=== PATIENT | female | born 1955 | race Caucasian/White ===

== ENCOUNTER → 2016-06-14 | Outpatient (CLI) | payer BC, MEDICAID ==
[2015-12-06 18:49] VITALS: BP 141/65
[~2016-06-14] MED LIST: ACET500T33 PO; ALBU2.5V14 NEB; ATOR10TA60 PO; ATOR20TA PO; BUPIVACAINE MPF 0.5% 10 ML VIAL for KCIC. IJ ONE; CALC-77 PO; CARV25TA2 PO; CHOL200027 PO; CLON0.2T PO; CLON1PAT11 TD; CRAN500T2 PO; EPIN0.1S IJ; FLUT16SP NS; FLUT1DIS IH; FLUT1DIS3 IH; FURO-69 PO; HYDR-2762 PO; IOHEXOL 300 MG/ML 50 ML VIAL. INT ART ONE; LIDOCAINE 1% Multi-Dose 20 ML VIAL. ID ONE; LORA10TA68 PO; LOSA1TAB17 PO; LOSA1TAB18 PO; MONT10TA6 PO; NYST15CR TP; POTA10CA PO; POTA500T5 PO; PROAIR RESPICL90 MCG IH; PROM25TA10 PO; SUCR1TAB PO; TRAM100T PO; methylPREDNISolone ACETATE 40 MG/ML VIAL. INT ART ONE
--- NOTE | 2016-06-14 16:44 | KCIC ---
PROCEDURE THERAPEUTIC RIGHT HIP JOINT INJECTION USING FLUOROSCOPY INDICATIONS: Chronic right hip pain. PROCEDURE: The procedure and possible complications including bleeding and infection and allergic reaction were explained. The patient provided both verbal and written consent. A timeout was performed including confirming the name of the patient and the date of and the type of procedure and the side of the procedure. Allergic reactions were reviewed. The right hip was marked. The right hip was prepped with Betadine and draped in the usual sterile fashion. A total of [3] cc of 1% lidocaine was utilized for local anesthesia. Using sterile technique and fluoroscopic guidance, a 22 Gauge spinal needle was directed into the right hip joint from an anterior approach. A solution containing 4 cc of 1 percent lidocaine and 4 cc of 0.5 percent Marcaine and 4 cc of Omnipaque 300 and 80 milligrams of Depo-Medrol was injected intra-articularly into the right hip joint under fluoroscopic observation. Fluoroscopic spot view was obtained confirming intra-articular position of the contrast. The needle was removed and hemostasis was deemed adequate. The patient tolerated the procedure well without complication. Followup will be with the patient's physician. Total fluoroscopic time: 12 seconds. Total fluoroscopic spot view: 1. IMPRESSION: Fluoroscopic guided right hip therapeutic injection was performed as discussed above without complication. Electronically signed by: Bogdan Staton MD (Jun 14, 2016 16:43:07)
== END | disposition home or self-care (01) ==
LOC: KCIC 15:29
PROVIDERS: ATTEND Orthopaedic Surgery Sports Medicine
DX: M25.551 Pain in right hip (principal); G89.29 Other chronic pain
CPT/HCPCS: 20610; 77002; J1030; Q9967

== ENCOUNTER → 2016-08-22 | Outpatient (CLI) | payer BC, MEDICAID ==
[2015-12-06 18:49] VITALS: BP 141/65
[~2016-08-22] MED LIST changes: -BUPIVACAINE MPF 0.5% 10 ML VIAL for KCIC. IJ ONE; -IOHEXOL 300 MG/ML 50 ML VIAL. INT ART ONE; -LIDOCAINE 1% Multi-Dose 20 ML VIAL. ID ONE; -POTA10CA PO; +POTASSIUM CHLO10 MEQ PO; -methylPREDNISolone ACETATE 40 MG/ML VIAL. INT ART ONE
--- NOTE | 2016-08-22 14:48 | KCIC ---
EXAM: Bilateral screening mammogram. HISTORY: 61-year-old female presents for screening mammography. TECHNIQUE: Full-field digital craniocaudal and mediolateral oblique views of both breasts are obtained for evaluation. Computer aided detection with Storactive[employer] software version 9.3 was applied. COMPARISON: 07/29/2015 and 07/21/2014 BREAST PARENCHYMAL DENSITY: Level B - Scattered fibroglandular densities. FINDINGS: There is no new suspicious mass, microcalcification or region of architectural distortion. IMPRESSION: BI-RADS Category 2: Benign finding(s). RECOMMENDATION: Annual mammography is recommended. If your mammogram demonstrates that you have dense breast tissue, which could hide abnormalities, and if you have other risk factors for breast cancer that have been identified, you might benefit from supplemental screening tests that may be suggested by your ordering physician. Dense breast tissue, in and of itself, is a relatively common condition. This information is not provided to cause undue concern, but rather to raise your awareness and to promote discussion with your physician regarding the presence of other risk factors, in addition to dense breast tissue. A report of your mammography results will be sent to you and your physician. You should contact your physician if you have any questions or concerns regarding this report. Mammography is a sensitive method for finding small breast cancers, but it does not detect them all and is not a substitute for careful clinical examination. A negative mammogram does not negate a clinically suspicious finding and should not result in delay in biopsying a clinically suspicious abnormality. PQRS compliance statement - Patient information was entered into a reminder system with a target due date for the next mammogram. "Our facility is accredited by the [employer] Mammography Program." Electronically signed by: Teresa Cochran MD (08/22/2016 2:44 PM) [facility]
== END | disposition home or self-care (01) ==
LOC: KCIC MAMMO 13:59
PROVIDERS: ATTEND Family Medicine
DX: Z12.31 Encounter for screening mammogram for malignant neoplasm of breast (principal)
CPT/HCPCS: G0202; 77067

== ENCOUNTER → 2016-09-17 | Outpatient (CLI) | payer BC, MEDICAID ==
[2015-12-06 18:49] VITALS: BP 141/65
[~2016-09-17] MED LIST changes: +BUPIVACAINE MPF 0.5% 10 ML VIAL for KCIC. IJ ONE; +IOHEXOL 300 MG/ML 50 ML VIAL. INT ART ONE; +LIDOCAINE 1% Multi-Dose 20 ML VIAL. ID ONE; +methylPREDNISolone ACETATE 40 MG/ML VIAL. INT ART ONE
--- NOTE | 2016-09-17 13:35 | KCIC ---
Therapeutic right hip injection using fluoroscopic guidance dated 09/17/2016: Indication: Arthritis. hip pain.. Technique: The procedure was explained to the patient as were potential risks. All questions were answered. Informed written consent was obtained. The right hip was prepped and draped in the usual sterile manner. Following administration of local anesthetic, a 22-gauge spinal needle was advanced into the hip joint without difficulty, with care taken to avoid the vascular structures. Stylet was removed and following negative aspiration, a mixture of 4 cc Omnipaque-300, 2 cc (80 mg) Depo-Medrol, 4 cc lidocaine and 4 cc 0.5% bupivacaine were injected without difficulty. Fluoroscopy demonstrates uniform and satisfactory distribution of the injection through the hip. The needle was removed. There was good hemostasis at the injection site. The patient left in stable condition without immediate complication. The patient was given postprocedural instructions, instructed to contact us or the emergency room if there are any complications. 0:39 minutes fluoroscopic time used. One image. FINDINGS: Single fluoroscopic image shows needle tip at the lateral head/neck junction. Contrast material extends into the joint space. Impression: Successful right hip steroid injection. Electronically signed by: Chad Barkre MD (09/17/2016 1:32 PM) [facility]
== END | disposition home or self-care (01) ==
LOC: KCIC 11:57
PROVIDERS: ATTEND Orthopaedic Surgery Sports Medicine
DX: M16.11 Unilateral primary osteoarthritis, right hip (principal); G89.29 Other chronic pain
CPT/HCPCS: 20610; 77002; J1030; Q9967

== ENCOUNTER 2016-10-14 21:16 | Emergency (ER) | payer BC, MEDICAID ==
[~2016-10-14] VITALS: Ht 160 cm; Wt 97.5 kg
[~2016-10-14 21:16] MED LIST changes: -BUPIVACAINE MPF 0.5% 10 ML VIAL for KCIC. IJ ONE; -IOHEXOL 300 MG/ML 50 ML VIAL. INT ART ONE; -LIDOCAINE 1% Multi-Dose 20 ML VIAL. ID ONE; -methylPREDNISolone ACETATE 40 MG/ML VIAL. INT ART ONE
[2016-10-14 22:09] VITALS: BP 126/60
--- NOTE | 2016-10-14 22:17 | PHYS DOC ---
Past Medical History Past Medical History: Arthritis, Asthma, Diabetes-Type I, High Cholesterol, Hypertension, IBS Additional Past Medical Histor: CHRONIC BACK PAIN, CKD, SHINGLES, MRSA, BRADYCARDIA Past Surgical History: Angioplasty, Knee Replacement Additional Past Surgical Histo: BILAT KNEE REPL., RT SHOULDER, SINUS, CARPAL TUNNEL, CATARACT BILAT, Alcohol Use: None Drug Use: None Adult General Chief Complaint Chief Complaint: LACERATION/AVULSION HPI HPI Patient is a 61 year old female presents to the emergency department stating that she was using a basket that has 4 will start take her laundry across the street. She states that the car got stuck and fell over and hit her leg. She has a V-shaped laceration that is 4 cm with one V3 centimeters in the other feet. Bleeding is currently controlled at this time. Peripheral pulses are 2+ cap refill brisk less than 2 seconds. Patient states her tetanus immunization is up-to-date. Review of Systems Review of Systems Constitutional: Denies fever or chills [] Eyes: Denies change in visual acuity, redness, or eye pain [] HENT: Denies nasal congestion or sore throat [] Respiratory: Denies cough or shortness of breath [] Cardiovascular: No additional information not addressed in HPI [] GI: Denies abdominal pain, nausea, vomiting, bloody stools or diarrhea [] : Denies dysuria or hematuria [] Musculoskeletal: Denies back pain or joint pain [] Integument: Denies rash or skin lesions. Laceration right lower leg Neurologic: Denies headache, focal weakness or sensory changes [] Endocrine: Denies polyuria or polydipsia [] Current Medications Current Medications Current Medications Medications (Trade) Dose Ordered Sig/Khushboo Start Time Stop Time Status Last Admin Dose Admin Lidocaine/Sodium Bicarbonate (Buffered Lidocaine 1%) 20 ml 1X ONCE 10/14/16 22:30 10/14/16 22:31 DC 10/14/16 22:50 20 ML Allergies Allergies Allergies Coded Allergies Type Severity Reaction Last Updated Verified Sulfa (Sulfonamide Antibiotics) Allergy Intermediate SYNCOPAL EPISODE Yes bacitracin Allergy Intermediate Rash 04/16/13 Yes meloxicam Allergy Intermediate Swelling in Feet 08/05/15 Yes tizanidine Allergy Intermediate Swelling 04/16/13 Yes venom-honey bee Allergy Intermediate 08/05/15 Yes venom-wasp Allergy Intermediate 08/05/15 Yes Physical Exam Physical Exam Constitutional: Well developed, well nourished, no acute distress, non-toxic appearance. [] HENT: Normocephalic, atraumatic, bilateral external ears normal, oropharynx moist, no oral exudates, nose normal. [] Eyes: PERRLA, EOMI, conjunctiva normal, no discharge. [] Neck: Normal range of motion, no tenderness, supple, no stridor. [] Cardiovascular:Heart rate regular rhythm Lungs & Thorax: No respiratory distress noted Skin: Warm, dry, no erythema, no rash. Patient with a V-shaped laceration to the right lateral leg The calf. Patient's length is 3 cm on one be 4 cm on the second the. Bleeding is currently controlled. Back: No tenderness Extremities: No tenderness, no cyanosis, no clubbing, ROM intact, no edema. Peripheral pulses 2+ cap refill brisk less than 2 seconds. Neurologic: Alert and oriented X 3, normal motor function, normal sensory function, no focal deficits noted. [] Psychologic: Affect normal, judgement normal, mood normal. [] Current Patient Data Vital Signs Vital Signs Date Time Temp Pulse Resp B/P (MAP) Pulse Ox O2 Delivery O2 Flow Rate FiO2 10/14/16 22:09 98.6 67 16 97 Room Air 98.6 EKG EKG [] Radiology/Procedures Radiology/Procedures [] Course & Med Decision Making Course & Med Decision Making Pertinent Labs and Imaging studies reviewed. (See chart for details) Patient was provided with discharge instructions, treatment regimens and follow- up recommendations. Recommended cleaning the site twice daily with soap and water and applying antibiotic ointment. Patient was provided with signs and symptoms of infection: Redness, warmth, tenderness or any yellow/greenish transient become from the sites is to follow-up primary care physician immediately. Patient was also instructed to have the sutures out in 7-10 days. Patient agrees with discharge instructions, treatment regimens and follow-up recommendations. [] Dragon Disclaimer Dragon Disclaimer This electronic medical record was generated, in whole or in part, using a voice recognition dictation system. Departure Departure Impression: Primary Impression: Laceration Disposition: 01 HOME, SELF-CARE Condition: STABLE Referrals: PREM WISDOM MD (PCP) Patient Instructions: Laceration Care, Adult, [id number] Additional Instructions: Keep the area clean and dry. Clean the site twice daily with soap and water and apply antibiotic ointment to the area. Watch for signs and symptoms of infection: Redness, warmth, tenderness or any yellow/greenish transient become from the site. If this should occur you may do follow-up to primary care physician immediately. Otherwise follow-up to primary care physician next 7-10 days for suture removal. Return back to emergency prior signs symptoms of become worse. Laceration/Wound Repair Laceration/Wound Repair : Wound Location: lower extremity Wound's Depth, Shape: superficial Wound Length (cm): 5 Wound Explored: clean Irrigated w/ Saline (ccs): 200 Betadine Prep?: Yes Anesthesia: 1% Lidocaine Volume Anesthetic (ccs): 12 Wound Debrided: minimal Wound Repaired With: sutures Suture Size/Type: 3:0, nylon Number of Sutures: 8 Progress 1% lidocaine buffered with approximately 12 mL injected into the area. Site was irrigated with 200 mL of normal saline. Site was cleaned with Betadine. 3-0 nylon was used to suture the area. Patient tolerated the procedure well. There is an area at the bottom of the V that was not suturable that was left slightly open. She had a total of 8 interrupted sutures placed. XOCHILT LOPEZ APRN Oct 14, 2016 22:17
[2016-10-14] MEDS ORDERED: LIDOCAINE 1% / SOD BICARB 8.4% 20 ML VIAL. IJ ONE (22:30)
== END 2016-10-14 23:43 | disposition home or self-care (01) ==
LOC: ER 21:16
DX: S81.811A Laceration without foreign body, right lower leg, initial encounter (principal); J45.909 Unspecified asthma, uncomplicated; E78.00 Pure hypercholesterolemia, unspecified; M19.90 Unspecified osteoarthritis, unspecified site; E10.22 Type 1 diabetes mellitus with diabetic chronic kidney disease; I12.9 Hypertensive chronic kidney disease with stage 1 through stage 4 chronic kidney disease, or unspecified chronic kidney disease; N18.9 Chronic kidney disease, unspecified; G89.29 Other chronic pain; K58.9 Irritable bowel syndrome, unspecified; Z86.14 Personal history of Methicillin resistant Staphylococcus aureus infection; Z95.5 Presence of coronary angioplasty implant and graft; Z96.653 Presence of artificial knee joint, bilateral; Z88.2 Allergy status to sulfonamides; Z88.1 Allergy status to other antibiotic agents; Z88.8 Allergy status to other drugs, medicaments and biological substances; Z91.030 Bee allergy status; W18.09XA Striking against other object with subsequent fall, initial encounter; Y93.89 Activity, other specified; Y99.8 Other external cause status; Y92.89 Other specified places as the place of occurrence of the external cause
CPT/HCPCS: 12002; 99283-25

== ENCOUNTER → 2016-11-13 | Outpatient (CLI) | payer BC, MEDICAID ==
[2016-10-14 22:09] VITALS: BP 126/60
== END | disposition home or self-care (01) ==
LOC: PMGWOUND 09:53
PROVIDERS: ATTEND Emergency Medicine Undersea and Hyperbaric Medicine
DX: T81.31XA Disruption of external operation (surgical) wound, not elsewhere classified, initial encounter (principal); S81.811A Laceration without foreign body, right lower leg, initial encounter; E10.22 Type 1 diabetes mellitus with diabetic chronic kidney disease; I13.0 Hypertensive heart and chronic kidney disease with heart failure and stage 1 through stage 4 chronic kidney disease, or unspecified chronic kidney disease; N18.9 Chronic kidney disease, unspecified; I50.9 Heart failure, unspecified; E78.00 Pure hypercholesterolemia, unspecified; J45.909 Unspecified asthma, uncomplicated; M16.11 Unilateral primary osteoarthritis, right hip; Z86.14 Personal history of Methicillin resistant Staphylococcus aureus infection; Y92.89 Other specified places as the place of occurrence of the external cause; Y93.89 Activity, other specified; X58.XXXA Exposure to other specified factors, initial encounter
CPT/HCPCS: 97597

== ENCOUNTER → 2016-11-20 | Outpatient (CLI) | payer BC, MEDICAID ==
[~2016-11-20] MED LIST changes: +AMOX1TAB61 PO; +BENZ100C PO; -LOSA1TAB17 PO; -LOSA1TAB18 PO; +LOSA1TAB22 PO; +LOSA1TAB25 PO
== END | disposition home or self-care (01) ==
LOC: PMGWOUND 10:45
PROVIDERS: ATTEND Emergency Medicine Undersea and Hyperbaric Medicine
DX: T81.33XD Disruption of traumatic injury wound repair, subsequent encounter (principal); S81.811D Laceration without foreign body, right lower leg, subsequent encounter; E78.00 Pure hypercholesterolemia, unspecified; E11.22 Type 2 diabetes mellitus with diabetic chronic kidney disease; I13.0 Hypertensive heart and chronic kidney disease with heart failure and stage 1 through stage 4 chronic kidney disease, or unspecified chronic kidney disease; N18.9 Chronic kidney disease, unspecified; I50.9 Heart failure, unspecified; M16.11 Unilateral primary osteoarthritis, right hip; J45.909 Unspecified asthma, uncomplicated; Z86.14 Personal history of Methicillin resistant Staphylococcus aureus infection; Y83.8 Other surgical procedures as the cause of abnormal reaction of the patient, or of later complication, without mention of misadventure at the time of the procedure
CPT/HCPCS: 97597

== ENCOUNTER → 2016-11-27 | Outpatient (CLI) | payer BC, MEDICAID ==
[~2016-11-27] MED LIST changes: -AMOX1TAB61 PO; -BENZ100C PO
== END | disposition home or self-care (01) ==
LOC: PMGWOUND 10:57
PROVIDERS: ATTEND Emergency Medicine Undersea and Hyperbaric Medicine
DX: T81.31XD Disruption of external operation (surgical) wound, not elsewhere classified, subsequent encounter (principal); J45.909 Unspecified asthma, uncomplicated; M19.90 Unspecified osteoarthritis, unspecified site; E78.00 Pure hypercholesterolemia, unspecified; I12.9 Hypertensive chronic kidney disease with stage 1 through stage 4 chronic kidney disease, or unspecified chronic kidney disease; N18.3 Chronic kidney disease, stage 3 (moderate); Z87.891 Personal history of nicotine dependence; Y83.8 Other surgical procedures as the cause of abnormal reaction of the patient, or of later complication, without mention of misadventure at the time of the procedure
CPT/HCPCS: 97597

== ENCOUNTER → 2016-12-04 | Outpatient (CLI) | payer BC, MEDICAID | END | disposition home or self-care (01) | LOC: PMGWOUND 09:47 | PROVIDERS: ATTEND Emergency Medicine Undersea and Hyperbaric Medicine | DX: T81.31XD Disruption of external operation (surgical) wound, not elsewhere classified, subsequent encounter (principal); S81.811D Laceration without foreign body, right lower leg, subsequent encounter; E78.00 Pure hypercholesterolemia, unspecified; J45.909 Unspecified asthma, uncomplicated; M16.11 Unilateral primary osteoarthritis, right hip; E11.22 Type 2 diabetes mellitus with diabetic chronic kidney disease; I12.9 Hypertensive chronic kidney disease with stage 1 through stage 4 chronic kidney disease, or unspecified chronic kidney disease; N18.3 Chronic kidney disease, stage 3 (moderate); G89.29 Other chronic pain; Z86.14 Personal history of Methicillin resistant Staphylococcus aureus infection; Z87.891 Personal history of nicotine dependence; Y83.8 Other surgical procedures as the cause of abnormal reaction of the patient, or of later complication, without mention of misadventure at the time of the procedure | CPT/HCPCS: 99213 ==

== ENCOUNTER → 2016-12-12 | Outpatient (CLI) | payer BC, MEDICAID ==
[~2016-12-12] MED LIST changes: +BUPIVACAINE MPF 0.5% 10 ML VIAL for KCIC. IJ ONE; +CONTRAST GIVEN MC PRN; +IOHEXOL 300 MG/ML 50 ML VIAL. INT ART ONE; +LIDOCAINE 1% Multi-Dose 20 ML VIAL. ID ONE; +methylPREDNISolone ACETATE 40 MG/ML VIAL. INT ART ONE
--- NOTE | 2016-12-12 11:47 | KCIC ---
EXAM: Fluoroscopic guided therapeutic right hip injection. HISTORY: Pain TECHNIQUE: The risks of the procedure were discussed with the patient and written and verbal consent was obtained. A time out was performed. Fluoroscopic imaging of the right hip was performed and a site overlying the joint space was selected for needle entry. The skin overlying this region was sterilely prepped, draped and infiltrated with 1% lidocaine. A spinal needle was then advanced into the joint space with fluoroscopic guidance. Subsequently, the requested mixture containing 2 cc Depo-Medrol, 4 cc 1 percent lidocaine, 4 cc Marcaine and 4 cc Omnipaque 300 was injected into the joint space. Fluoroscopic images demonstrate intraarticular accumulation of contrast. The needle was removed and a sterile bandage was placed at the needle entry site. The patient tolerated the procedure without difficulty and was discharged in stable condition. The total fluoroscopy time was 40 seconds and a single fluoroscopic images were obtained. IMPRESSION: Successful fluoroscopic guided therapeutic right hip injection. Electronically signed by: Teresa Cochran MD (12/12/2016 11:44 AM) [facility]
== END | disposition home or self-care (01) ==
LOC: KCIC 10:31
PROVIDERS: ATTEND Orthopaedic Surgery Sports Medicine
DX: M25.551 Pain in right hip (principal); G89.29 Other chronic pain; J45.909 Unspecified asthma, uncomplicated; I10 Essential (primary) hypertension
CPT/HCPCS: 20610; 77002; J1030; Q9967

== ENCOUNTER 2016-12-31 15:42 | Emergency (ER) | payer BC, MEDICAID ==
[~2016-12-31] VITALS: Ht 160 cm; Wt 96.2 kg
[~2016-12-31 15:42] MED LIST changes: -BUPIVACAINE MPF 0.5% 10 ML VIAL for KCIC. IJ ONE; -CONTRAST GIVEN MC PRN; -IOHEXOL 300 MG/ML 50 ML VIAL. INT ART ONE; -LIDOCAINE 1% Multi-Dose 20 ML VIAL. ID ONE; -methylPREDNISolone ACETATE 40 MG/ML VIAL. INT ART ONE
[2016-12-31 16:19] VITALS: BP 142/63
--- NOTE | 2016-12-31 16:20 | RAD ---
Indication: Cough, short of air, congestion, chest tightness, symptoms for 3 weeks. Technique: Two-view chest radiograph was obtained and compared to a study from September 29, 2015. Findings: The lungs are clear. Nodular density noted on the left on prior study has resolved. Heart is upper limits of normal in size. There is no definite heart failure. There is no pleural effusion. There are minimal degenerative changes in the spine. Impression: No acute thoracic findings.
[2016-12-31] MEDS ORDERED: BENZ100C PO (16:45)
[2016-12-31] MEDS ORDERED: AMOX1TAB61 PO (16:45)
[2016-12-31] MEDS ORDERED: PROAIR RESPICL90 MCG IH (16:45)
--- NOTE | 2016-12-31 16:45 | PHYS DOC ---
Past Medical History Past Medical History: Arthritis, Asthma, Diabetes-Type I, High Cholesterol, Hypertension, IBS Additional Past Medical Histor: CHRONIC BACK PAIN, CKD, SHINGLES, MRSA, BRADYCARDIA Past Surgical History: Angioplasty, Knee Replacement Additional Past Surgical Histo: BILAT KNEE REPL., RT SHOULDER, SINUS, CARPAL TUNNEL, CATARACT BILAT, Alcohol Use: None Drug Use: None Adult General Chief Complaint Chief Complaint: COUGH HPI HPI Patient is a 61 year old female with history of asthma, hypertension, diabetes type 1, high cholesterol, who presents with a productive cough and nasal congestion for 3 weeks. Patient states she had subjective fevers yesterday. Patient is also complaining of a dog scratch on the right calf that happened yesterday. Her tetanus is up-to-date. Review of Systems Review of Systems Constitutional: Denies fever or chills [] Eyes: Denies change in visual acuity, redness, or eye pain [] HENT: nasal congestion denies sore throat [] Respiratory: reports cough denies shortness of breath [] Cardiovascular: No additional information not addressed in HPI [] GI: Denies abdominal pain, nausea, vomiting, bloody stools or diarrhea [] : Denies dysuria or hematuria [] Musculoskeletal: Denies back pain or joint pain [] Integument: dog scratch right calf Neurologic: Denies headache, focal weakness or sensory changes [] All other systems were reviewed and found to be within normal limits, except as documented in this note. Allergies Allergies Allergies Coded Allergies Type Severity Reaction Last Updated Verified Sulfa (Sulfonamide Antibiotics) Allergy Intermediate SYNCOPAL EPISODE Yes bacitracin Allergy Intermediate Rash 04/16/13 Yes meloxicam Allergy Intermediate Swelling in Feet 08/05/15 Yes tizanidine Allergy Intermediate Swelling 04/16/13 Yes venom-honey bee Allergy Intermediate 08/05/15 Yes venom-wasp Allergy Intermediate 08/05/15 Yes Physical Exam Physical Exam Constitutional: Well developed, well nourished, no acute distress, non-toxic appearance. [] HENT: Normocephalic, atraumatic, bilateral external ears normal, oropharynx moist, no oral exudates, Patient sounds congested nasally. Bilateral nasal turbinates are boggy and erythematous. Eyes: PERRLA, EOMI, conjunctiva normal, no discharge. [] Neck: Normal range of motion, no tenderness, supple, no stridor. [] Cardiovascular:Heart rate regular rhythm, no murmur [] Lungs & Thorax: Bilateral breath sounds clear to auscultation [] Abdomen: Bowel sounds normal, soft, no tenderness, no masses, no pulsatile masses. [] Skin: Warm, dry right calf with an open wound approximately 2X1 cm from dog scratch Back: No tenderness, no CVA tenderness. [] Extremities: No tenderness, no cyanosis, no clubbing, ROM intact, no edema. [] Neurologic: Alert and oriented X 3, normal motor function, normal sensory function, no focal deficits noted. [] Psychologic: Affect normal, judgement normal, mood normal. [] Current Patient Data Vital Signs Vital Signs Date Time Temp Pulse Resp B/P (MAP) Pulse Ox O2 Delivery O2 Flow Rate FiO2 12/31/16 16:19 98.9 72 20 100 Room Air 98.9 EKG EKG [] Radiology/Procedures Radiology/Procedures [] Course & Med Decision Making Course & Med Decision Making Pertinent Labs and Imaging studies reviewed. (See chart for details) Patient is in the ED with symptoms consistent of bronchitis and a sinus infection. She also has a dog scratch on the right calf. Chest x-ray interpreted by radiologist is negative for any acute findings. She was discharged with Augmentin, albuterol inhaler and Tessalon Perles. F/u with PCP in one week. Tetanus is up to date. Dragon Disclaimer Dragon Disclaimer This electronic medical record was generated, in whole or in part, using a voice recognition dictation system. Departure Departure Impression: Primary Impression: Acute bronchitis Additional Impressions: Dog scratch Sinusitis, acute Disposition: 01 HOME, SELF-CARE Condition: STABLE Referrals: PREM WISDOM MD (PCP) followup next week Patient Instructions: Acute Bronchitis, Sinusitis Additional Instructions: You were seen with symptoms consistent with bronchitis, sinus infection and you also have a dog scratch on the right lower extremity. Keep the area clean and dry. You can shower. Complete your antibiotics. Follow-up with your doctor in the next 1 week. Return to the ED at any point symptoms worsen. Scripts Amoxicillin/Potassium Clav (AUGMENTIN 875-125 TABLET) 1 Each Tablet 1 TAB PO BID, #20 TAB Prov: SHANKAR CHUNG DONAVAN 12/31/16 Albuterol Sulfate (Proair Respiclick) 90 Mcg Aer.pow.ba 1 PUFF IH PRN Q6HRS Y for SHORTNESS OF BREATH, #1 INHALER Prov: SHANKAR CHUNG [employer] 12/31/16 Benzonatate (TESSALON PERLE) 100 Mg Capsule 1 CAP PO TID, #30 CAP Prov: SHELDONSHANKAR [employer] T[employer]ER 12/31/16 Problem Qualifiers Primary Impression: Acute bronchitis Bronchitis organism: unspecified organism Qualified Codes: J20.9 - Acute bronchitis, unspecified Additional Impressions: Sinusitis, acute Sinusitis location: unspecified location Recurrence: non-recurrent Qualified Codes: J01.90 - Acute sinusitis, unspecified EVELIASHANKAR CARRILLO [employer]ER Dec 31, 2016 16:45
== END 2016-12-31 16:57 | disposition home or self-care (01) ==
LOC: ER 15:42
DX: S81.801A Unspecified open wound, right lower leg, initial encounter (principal); J20.9 Acute bronchitis, unspecified; J01.90 Acute sinusitis, unspecified; M19.90 Unspecified osteoarthritis, unspecified site; J45.909 Unspecified asthma, uncomplicated; I12.9 Hypertensive chronic kidney disease with stage 1 through stage 4 chronic kidney disease, or unspecified chronic kidney disease; E10.22 Type 1 diabetes mellitus with diabetic chronic kidney disease; N18.9 Chronic kidney disease, unspecified; E78.00 Pure hypercholesterolemia, unspecified; K58.9 Irritable bowel syndrome, unspecified; G89.29 Other chronic pain; E10.36 Type 1 diabetes mellitus with diabetic cataract; Z96.653 Presence of artificial knee joint, bilateral; Z98.42 Cataract extraction status, left eye; Z98.41 Cataract extraction status, right eye; Z98.61 Coronary angioplasty status; Z88.2 Allergy status to sulfonamides; Z88.1 Allergy status to other antibiotic agents; Z88.8 Allergy status to other drugs, medicaments and biological substances; Z91.030 Bee allergy status; X58.XXXA Exposure to other specified factors, initial encounter; Y93.89 Activity, other specified; Y92.89 Other specified places as the place of occurrence of the external cause; Y99.8 Other external cause status
CPT/HCPCS: 71020; 99284-25

== ENCOUNTER → 2017-04-04 | Outpatient (CLI) | payer BC, MEDICAID ==
[2017-04-04] MEDS: BUPIVACAINE MPF 0.5% 10 ML VIAL for KCIC. IJ ×2 (10:35)
[2017-04-04] MEDS: LIDOCAINE 1% Multi-Dose 20 ML VIAL. ID ×2 (10:35)
[2017-04-04] MEDS: IOHEXOL 300 MG/ML 10ML VIAL. INT ART ×2 (10:35)
[2017-04-04] MEDS: methylPREDNISolone ACETATE 40 MG/ML VIAL. INT ART ×2 (10:35)
== END | disposition home or self-care (01) ==
LOC: KCIC 09:55
DX: M16.11 Unilateral primary osteoarthritis, right hip (principal); I25.10 Atherosclerotic heart disease of native coronary artery without angina pectoris; J45.909 Unspecified asthma, uncomplicated; I12.9 Hypertensive chronic kidney disease with stage 1 through stage 4 chronic kidney disease, or unspecified chronic kidney disease; E11.22 Type 2 diabetes mellitus with diabetic chronic kidney disease; N18.2 Chronic kidney disease, stage 2 (mild); F17.200 Nicotine dependence, unspecified, uncomplicated; Z86.69 Personal history of other diseases of the nervous system and sense organs; Z86.39 Personal history of other endocrine, nutritional and metabolic disease; Z88.1 Allergy status to other antibiotic agents; Z88.2 Allergy status to sulfonamides; Z88.8 Allergy status to other drugs, medicaments and biological substances
CPT/HCPCS: 20610; 77002; J1030; Q9967

== ENCOUNTER → 2017-09-20 | Outpatient (CLI) | payer BC, MEDICAID ==
[~2017-09-20] MED LIST changes: -ACET500T33 PO; -ALBU2.5V14 NEB; -ATOR10TA60 PO; -ATOR20TA PO; -CALC-77 PO; -CARV25TA2 PO; -CHOL200027 PO; -CLON0.2T PO; -CLON1PAT11 TD; +CONTRAST GIVEN. MC; -CRAN500T2 PO; -EPIN0.1S IJ; -FLUT16SP NS; -FLUT1DIS IH; -FLUT1DIS3 IH; -FURO-69 PO; -HYDR-2762 PO; -LORA10TA68 PO; -LOSA1TAB22 PO; -LOSA1TAB25 PO; -MONT10TA6 PO; -NYST15CR TP; -POTA500T5 PO; -POTASSIUM CHLO10 MEQ PO; -PROAIR RESPICL90 MCG IH; -PROM25TA10 PO; -SUCR1TAB PO; -TRAM100T PO
[2017-09-20] MEDS: LIDOCAINE 1% Multi-Dose 20 ML VIAL. ID (11:40)
[2017-09-20] MEDS: IOHEXOL 300 MG/ML 50 ML VIAL. INT ART (11:40)
[2017-09-20] MEDS: methylPREDNISolone ACETATE 40 MG/ML VIAL. INT ART (11:40)
[2017-09-20] MEDS: BUPIVACAINE MPF 0.5% 10 ML VIAL for KCIC. IM (11:40)
== END | disposition home or self-care (01) ==
LOC: KCIC 09:59
DX: M16.11 Unilateral primary osteoarthritis, right hip (principal); I12.9 Hypertensive chronic kidney disease with stage 1 through stage 4 chronic kidney disease, or unspecified chronic kidney disease; E11.22 Type 2 diabetes mellitus with diabetic chronic kidney disease; N18.2 Chronic kidney disease, stage 2 (mild); J45.909 Unspecified asthma, uncomplicated; Z87.891 Personal history of nicotine dependence
CPT/HCPCS: 20610; 77002; J1030; Q9967

== ENCOUNTER 2018-03-21 17:03 | Inpatient (IN) | payer BC, MEDICAID ==
[~2018-03-21] VITALS: Ht 160 cm; Wt 134.3 kg
[~2018-03-21 17:03] MED LIST changes: +ACET500T33 PO; +ALBU2.5V14 NEB; +AMOX1TAB61 PO; +ATOR10TA60 PO; +ATOR20TA PO; +BENZ100C PO; +CALC-77 PO; +CARV25TA2 PO; +CHOL200027 PO; +CLON0.2T PO; +CLON1PAT11 TD; -CONTRAST GIVEN. MC; +CRAN500T2 PO; +EPIN0.1S IJ; +FLUT16SP NS; +FLUT1DIS IH; +FLUT1DIS3 IH; +FURO-69 PO; +HYDR-2765 PO; +LORA10TA68 PO; +LOSA1TAB22 PO; +LOSA1TAB25 PO; +MONT10TA49 PO; +NYST15CR TP; +POTA10TA12 PO; +POTA500T5 PO; +PROAIR RESPICL90 MCG IH; +PROM25TA10 PO; +SUCR1TAB PO; +TRAM100T30 PO; +TRAM50TA PO
[2018-03-21 17:40] LABS: BILIRUBIN,URINE MODERATE (NEG); CLARITY,URINE TURBID; COLOR,URINE ORANGE; NITRITE,URINE NEGATIVE (NEG); PH,URINE 5.5; PROTEIN,URINE 30 mg/dL (NEG-TRACE)
[2018-03-21 18:00] LABS: RBC,URINE 0 /HPF (0-2); SQUAMOUS EPITHELIAL CELL,UR MANY /LPF
[2018-03-21 18:02] LABS: BACTERIA,URINE FEW /HPF (0-FEW)
[2018-03-21 18:10] LABS: BASO # 0.2 x10^3/uL (0.0-0.2); BASO % 3 % (0-3); EOS # 0.4 x10^3/uL (0.0-0.7); EOS % 5 % (0-3); HEMATOCRIT 37.7 % (36.0-47.0); HEMOGLOBIN 12.7 g/dL (12.0-15.5); LYMPH # 2.5 x10^3/uL (1.0-4.8); LYMPH % 32 % (24-48); MEAN CORPUSCULAR HEMOGLOBIN 35 pg (25-35); MEAN CORPUSCULAR HGB CONC 34 g/dL (31-37); MEAN CORPUSCULAR VOLUME 103 fL (79-100); MONO % 13 % (0-9); NEUT # 3.6 x10^3uL (1.8-7.7); NEUT % 47 % (31-73); PLATELET COUNT 199 x10^3/uL (140-400); RED BLOOD COUNT 3.68 x10^6/uL (3.50-5.40); RED CELL DISTRIBUTION WIDTH 15.6 % (11.5-14.5); WHITE BLOOD COUNT 7.8 x10^3/uL (4.0-11.0)
[2018-03-21] MEDS ORDERED: ONDANSETRON PF 4 MG/2 ML VIAL. IV ONE (18:15)
[2018-03-21] MEDS ORDERED: IV NORMAL SALINE 1000ML BAG 1,000 ML IV ONE ×2 (18:15→19:45)
[2018-03-21 18:19] LABS: CALCIUM 9.4 mg/dL (8.5-10.1); CREATININE 0.9 mg/dL (0.6-1.0); GFR 63.2; POTASSIUM 3.5 mmol/L (3.5-5.1)
[2018-03-21 18:25] LABS: ALBUMIN 2.7 g/dL (3.4-5.0); ALBUMIN/GLOBULIN RATIO 0.6 (1.0-1.7); MAGNESIUM 1.4 mg/dL (1.8-2.4); TOTAL BILIRUBIN 2.3 mg/dL (0.2-1.0); TOTAL PROTEIN 7.1 g/dL (6.4-8.2)
--- NOTE | 2018-03-21 18:43 | PHYS DOC ---
Past Medical History Past Medical History: Arthritis, Asthma, Diabetes-Type II, High Cholesterol, Hypertension, IBS, MRSA, Other Additional Past Medical Histor: CHRONIC BACK PAIN,CKD,SHINGLES,BRADYCARDIA Past Surgical History: Angioplasty, Knee Replacement Additional Past Surgical Histo: BILAT KNEE REPL., RT SHOULDER, SINUS, CARPAL TUNNEL, CATARACT BILAT, Alcohol Use: None Drug Use: None Adult General Chief Complaint Chief Complaint: NAUSEA/VOMITING/DIARRHA HPI HPI Patient is a 62 year old female who presents to the emergency Department today with complaints of diarrhea for the last 2 days. Patient states she has had 3 or 4 episodes of diarrhea today. In addition she reports continued nausea and vomiting. Patient states she has not stop vomiting since she was admitted here at the end of last month for nausea, vomiting, and dehydration. Patient states during that visit she was diagnosed with stage III kidney disease. Patient states that in the last 24 hours she has vomited 3 times. She denies any fever, cough, shortness of breath, chest pain, palpitations, abdominal pain, dysuria, syncope, or hematuria. Patient denies any bloody stools, however, she reports that there has been bright red blood on the toilet tissue times after she has a bowel movement. Patient complains of dizziness with position changes and generalized weakness. She denies any pain at this time Review of Systems Review of Systems Constitutional: Denies fever or chills [] HENT: Denies nasal congestion or sore throat [] Respiratory: See history of present illness Cardiovascular: No additional information not addressed in HPI [] GI: Denies abdominal pain or bloody stools, see history of present illness : Denies dysuria or hematuria [] Musculoskeletal: Denies any increase in chronic back pain Integument: Denies rash or skin lesions; reports dry skin [] Neurologic: Denies headache, focal weakness or sensory changes [] Complete systems were reviewed and found to be within normal limits, except as documented in this note. Current Medications Current Medications Current Medications Medications (Trade) Dose Ordered Sig/Khushboo Start Time Stop Time Status Last Admin Dose Admin Acetaminophen (Tylenol) 1,000 mg TID 03/21/18 21:00 Acetaminophen/ Codeine Phosphate (Tylenol #3) 1 tab PRN Q6HRS PRN 03/21/18 19:15 Atorvastatin Calcium (Lipitor) 10 mg HS 03/21/18 21:00 Benzonatate (Tessalon Perle) 100 mg [id number] 03/21/18 21:00 Calcium/Vitamin D (Oscal D 500mg/ 200uts) 1 tab DAILY 03/22/18 09:00 Ceftriaxone Sodium (Rocephin) 1 gm Q24H 03/22/18 20:00 Cetirizine HCl (ZyrTEC) 10 mg DAILY 03/22/18 09:00 Clonidine HCl (Catapres Tts-3) 1 patch WEEKLY 03/28/18 09:00 UNV Fluticasone Propionate (Flonase) 2 spray BID 03/21/18 21:00 UNV Labetalol HCl (Normodyne Iv Push) 20 mg PRN Q2HR PRN 03/21/18 19:15 Montelukast Sodium (Singulair) 10 mg QHS 03/21/18 21:00 Morphine Sulfate (Morphine Sulfate) 2 mg PRN Q2HR PRN 03/21/18 19:30 Non-Formulary Medication (Albuterol Sulfate (Albuterol Sulfate Conc Neb Soln)) 1 vial Q6HRS PRN 03/21/18 19:15 UNV Non-Formulary Medication (Albuterol Sulfate (Proair Respiclick)) 1 puff PRN Q6HRS PRN 03/21/18 19:15 UNV Non-Formulary Medication (Cranberry Extract (Cranberry)) 4,200 mg BID 03/21/18 21:00 UNV Non-Formulary Medication (Fluticasone/ Salmeterol (Advair 250-50 Diskus)) 1 puff BID 03/21/18 21:00 UNV Non-Formulary Medication (Nystatin ) 1 amie QID 03/21/18 21:00 UNV Ondansetron HCl (Zofran Odt) 4 mg PRN Q6HRS PRN 03/21/18 19:15 Ondansetron HCl (Zofran) 4 mg PRN Q6HRS PRN 03/21/18 19:15 Promethazine HCl (Phenergan) 25 mg PRN Q6HRS PRN 03/21/18 19:30 Sodium Chloride 1,000 ml @ 1,000 mls/hr 1X ONCE 03/21/18 19:45 03/21/18 20:44 UNV 03/21/18 19:40 1,000 MLS/HR Sucralfate (Carafate) 1 gm QIDACHS 03/21/18 21:00 Tramadol HCl (Ultram) 100 mg QID 03/21/18 21:00 Vitamin D (Vitamin D3) 2,000 unit DAILY 03/22/18 09:00 Zolpidem Tartrate (Ambien) 5 mg PRN QHS PRN 03/21/18 19:15 Allergies Allergies Allergies Coded Allergies Type Severity Reaction Last Updated Verified Sulfa (Sulfonamide Antibiotics) Allergy Intermediate SYNCOPAL EPISODE Yes bacitracin Allergy Intermediate Rash 04/16/13 Yes meloxicam Allergy Intermediate Swelling in Feet 08/05/15 Yes tizanidine Allergy Intermediate Swelling 04/16/13 Yes venom-honey bee Allergy Intermediate 08/05/15 Yes venom-wasp Allergy Intermediate 08/05/15 Yes Physical Exam Physical Exam Constitutional: Well developed, well nourished, no acute distress, ill appearance, obese. [] HENT: Normocephalic, atraumatic, bilateral external ears normal, oropharynx dry , dry mucous membranes, no oral exudates, nose normal. [] Eyes: conjunctiva normal, no discharge. [] Neck: Normal range of motion no stridor. [] Cardiovascular: tachycardia, no murmur Lungs & Thorax: Bilateral breath sounds clear to auscultation, diminished in bases bilat[] Abdomen: Bowel sounds normal, soft, no tenderness, no masses, no pulsatile masses. [] Skin: Warm, dry, no erythema; generalized dry skin noted Extremities: No tenderness, no cyanosis, no clubbing, ROM intact, 1+ edema BLE Neurologic: Alert and oriented X 3, normal motor function, normal sensory function, no focal deficits noted. [] Psychologic: Affect normal, judgement normal, mood normal. [] Current Patient Data Vital Signs Vital Signs Date Time Temp Pulse Resp B/P (MAP) Pulse Ox O2 Delivery O2 Flow Rate FiO2 03/21/18 19:00 98.4 142 20 172/77 (108) 96 Room Air 98.4 Lab Values Laboratory Tests Test 03/21/18 14:52 03/21/18 17:25 03/21/18 17:50 03/21/18 18:00 Lactic Acid Level 2.3 mmol/L (0.4-2.0) H Urine Collection Type Unknown Urine Color [place] Urine Clarity Turbid Urine pH 5.5 Urine Specific [place] 1.025 Urine Protein 30 mg/dL (NEG-TRACE) Urine Glucose (UA) Negative mg/dL (NEG) Urine Ketones (Stick) 15 mg/dL (NEG) Urine Blood Negative (NEG) Urine Nitrite Negative (NEG) Urine Bilirubin Moderate (NEG) Urine Urobilinogen Dipstick 1.0 mg/dL (0.2 mg/dL) Urine Leukocyte Esterase Moderate (NEG) Urine RBC 0 /HPF (0-2) Urine WBC 11-20 /HPF (0-4) Urine Squamous Epithelial Cells Many /LPF Urine Bacteria Few /HPF (0-FEW) White Blood Count 7.8 x10^3/uL (4.0-11.0) Red Blood Count 3.68 x10^6/uL (3.50-5.40) Hemoglobin 12.7 g/dL (12.0-15.5) Hematocrit 37.7 % (36.0-47.0) Mean Corpuscular Volume 103 fL (79-100) H Mean Corpuscular Hemoglobin 35 pg (25-35) Mean Corpuscular Hemoglobin Concent 34 g/dL (31-37) Red Cell Distribution Width 15.6 % (11.5-14.5) H Platelet Count 199 x10^3/uL (140-400) Neutrophils (%) (Auto) 47 % (31-73) Lymphocytes (%) (Auto) 32 % (24-48) Monocytes (%) (Auto) 13 % (0-9) H Eosinophils (%) (Auto) 5 % (0-3) H Basophils (%) (Auto) 3 % (0-3) Neutrophils # (Auto) 3.6 x10^3uL (1.8-7.7) Lymphocytes # (Auto) 2.5 x10^3/uL (1.0-4.8) Monocytes # (Auto) 1.0 x10^3/uL (0.0-1.1) Eosinophils # (Auto) 0.4 x10^3/uL (0.0-0.7) Basophils # (Auto) 0.2 x10^3/uL (0.0-0.2) Sodium Level 145 mmol/L (136-145) Potassium Level 3.5 mmol/L (3.5-5.1) Chloride Level 109 mmol/L (98-107) H Carbon Dioxide Level 27 mmol/L (21-32) Anion Gap 9 (6-14) Blood Urea Nitrogen 7 mg/dL (7-20) Creatinine 0.9 mg/dL (0.6-1.0) Estimated GFR (Cockcroft-Gault) 63.2 BUN/Creatinine Ratio 8 (6-20) Glucose Level 82 mg/dL (70-99) Calcium Level 9.4 mg/dL (8.5-10.1) Magnesium Level 1.4 mg/dL (1.8-2.4) L Total Bilirubin 2.3 mg/dL (0.2-1.0) H Aspartate Amino Transferase (AST) 82 U/L (15-37) H Alanine Aminotransferase (ALT) 33 U/L (14-59) Alkaline Phosphatase 160 U/L (46-116) H Troponin I Quantitative 0.050 ng/mL (0.000-0.055) Total Protein 7.1 g/dL (6.4-8.2) Albumin 2.7 g/dL (3.4-5.0) L Albumin/Globulin Ratio 0.6 (1.0-1.7) L Influenza Type A Antigen Negative (NEGATIVE) Influenza Type B Antigen Negative (NEGATIVE) Laboratory Tests 03/21/18 17:50 Laboratory Tests 03/21/18 17:50 EKG EKG 1734- sinus tachycardia rate 138, no STEMI, read by Dr. Millan at 1738[] Radiology/Procedures Radiology/Procedures cxr negative for acute findings read by Dr. Singh at 1958[] Course & Med Decision Making Course & Med Decision Making Pertinent Labs and Imaging studies reviewed. (See chart for details) Dx: sepsis, UTI, diarrhea, nausea & vomiting. Pt was given 2000 ml of NS bolus for sepsis and elevated lactic acid level, bolus based on ideal body weight versus actual body weight. Blood cultures x2 ordered, 1 gm rocephin ordered after blood cultures drawn. CBC unremarkable; CMP 2.3 bilirubin, 160 alk phos, Ast 82, cl 109, troponin 0.050; lactic acid 2.3 influenza testing negative. CXR not concerning for acute cardio pulmonary process. 1910- Spoke with Dr. Patterson and advised of patient need for admission, will admit to [facility] [] Dragon Disclaimer Dragon Disclaimer This electronic medical record was generated, in whole or in part, using a voice recognition dictation system. Departure Departure Referrals: PREM WISDOM MD (PCP) HUNG RAM APRN Mar 21, 2018 18:43
[2018-03-21] MEDS ORDERED: LABETALOL 20 MG/4 ML DISP.SYRIN. IVP PRN (19:15)
[2018-03-21] MEDS ORDERED: NON FORMULARY ITEM (Albuterol Sulfate (Proair Respiclick) 1 PUFF) IH PRN ×2 (19:15)
[2018-03-21] MEDS ORDERED: ZOLPIDEM 5 MG TABLET. PO PRN (19:15)
[2018-03-21] MEDS ORDERED: traMADol 50 MG TABLET PO PRN (19:15)
[2018-03-21] MEDS ORDERED: cefTRIAXone IV Push 1 GM VIAL. IVP ONE (19:15)
[2018-03-21] MEDS ORDERED: ACETAMINOPHEN 500 MG TABLET PO PRN (19:15)
[2018-03-21] MEDS ORDERED: ONDANSETRON ODT 4 MG TAB.RAPDIS. PO PRN (19:15)
[2018-03-21] MEDS ORDERED: ACETAMINOPHEN/CODEINE 300/30MG TABLET. PO PRN (19:15)
[2018-03-21] MEDS ORDERED: ONDANSETRON PF 4 MG/2 ML VIAL. IV PRN (19:15)
[2018-03-21 19:21] LABS: INFLUENZA A PATIENT NEGATIVE (NEGATIVE); INFLUENZA B PATIENT NEGATIVE (NEGATIVE)
[2018-03-21] MEDS ORDERED: PROMETHAZINE 12.5 MG TABLET. PO PRN (19:30)
[2018-03-21] MEDS ORDERED: MORPHINE SULFATE 4 MG/ML VIAL. IV PRN (19:30)
[2018-03-21] MEDS ORDERED: ALBUTEROL SULFATE 2.5 MG/3 ML NEBU. NEB PRN (20:30)
--- NOTE | 2018-03-21 20:43 | RAD ---
PORTABLE CHEST 1V Clinical History: SEPSIS Technique: AP view of the chest was obtained at 03/21/2018 7:22 PM. Comparison: None. Findings: The cardiomediastinal silhouette is normal. The pulmonary vasculature is normal. There is density in the left lung base laterally. Impression: Small left pleural effusion with adjacent infiltrate. This could be secondary to pneumonia with a parapneumonic effusion. Electronically signed by: Keith Aj III, MD (03/21/2018 8:39 PM) [facility] [id number]
[2018-03-21] MEDS: IV NORMAL SALINE 1000ML BAG 1,000 ML IV SCH (20:47)
[2018-03-21] MEDS ORDERED: CRANBERRY EXTRACT 4200 MG PO SCH (21:00)
[2018-03-21] MEDS ORDERED: NYSTATIN TP SCH (21:00)
[2018-03-21 22:16] VITALS: BP 127/60
[2018-03-21] MEDS: MONTELUKAST SODIUM 10 MG TABLET. PO SCH (22:56)
[2018-03-21] MEDS: BENZONATATE 100 MG CAPSULE. PO SCH (22:57)
[2018-03-21] MEDS: traMADol 50 MG TABLET PO SCH (22:58)
[2018-03-21] MEDS: SUCRALFATE 1 GM TABLET. PO SCH (22:58)
[2018-03-21] MEDS: ATORVASTATIN CALCIUM 10 MG TABLET. PO SCH (22:58)
[2018-03-21] MEDS: ACETAMINOPHEN 500 MG TABLET PO SCH (22:59)
[2018-03-21] MEDS: FLUTICASONE 50MCG/NASAL SPRAY 16GM BOTTLE. NS SCH (23:05)
--- NOTE | 2018-03-21 23:45 | NUR ---
Patient's is ST 150 and up to 160 when she is up walking. Complaints of dizziness when she was up moving. Lactic was 2.3 in ED. RN notified DR Cher Patterson.
[2018-03-22 03:23] VITALS: BP 124/59
[2018-03-22] MEDS: IV NORMAL SALINE 1000ML BAG 1,000 ML IV SCH ×2 (05:24→11:52)
[2018-03-22] MEDS: SUCRALFATE 1 GM TABLET. PO SCH ×4 (05:28→21:23)
[2018-03-22 07:20] VITALS: BP 120/52
--- NOTE | 2018-03-22 08:05 | EKG ---
[facility] [address] [place] [address] Test Date: 2018-03-21 Test Time: 17:34:12 Pat Name: NELLIE TREVINO Department: Room: 210 1 Gender: F Sourcer: : 1955 Requested By: HUNG RAM Order Number: [id number] Reading MD: Jung Freeman Measurements Intervals [place] Rate: 137 P: -141 NH: 92 QRS: 32 QRSD: 76 T: 34 QT: 338 QTc: 512 Interpretive Statements SUPRAVENTRICULAR TACHYCARDIA LOW LIMB LEAD VOLTAGE NONSPECIFIC ST-T WAVE CHANGES. Electronically Signed On 03-24-2018 9:58:10 [employer] by Jung Freeman
[2018-03-22] MEDS: CETIRIZINE HCL 10 MG TABLET. PO SCH (08:15)
[2018-03-22] MEDS: LACTOBACILLUS RHAMNOSUS GG 1 CAPSULE. PO SCH ×2 (08:15→21:23)
[2018-03-22] MEDS: traMADol 50 MG TABLET PO SCH ×4 (08:16→21:24)
[2018-03-22] MEDS: CHOLECALCIFEROL (VITAMIN D3) 1,000 UNIT TABLET PO SCH (08:16)
[2018-03-22] MEDS: ACETAMINOPHEN 500 MG TABLET PO SCH ×3 (08:17→21:24)
[2018-03-22] MEDS: BENZONATATE 100 MG CAPSULE. PO SCH ×3 (08:17→21:23)
[2018-03-22] MEDS: CALCIUM CARB/VIT D3 500/200 TABLET. PO SCH (08:17)
[2018-03-22] MEDS: FLUTICASONE 50MCG/NASAL SPRAY 16GM BOTTLE. NS SCH ×2 (08:18→21:23)
[2018-03-22] MEDS: BUDESONIDE 0.5 MG/2 ML NEBU. NEB SCH ×2 (08:31→21:15)
[2018-03-22] MEDS: ALBUTEROL SULFATE 2.5 MG/3 ML NEBU. NEB SCH ×4 (08:31→21:15)
[2018-03-22] MEDS ORDERED: cloNIDine TTS-3 1 PATCH PATCH.TDWK TD SCH (09:00)
--- NOTE | 2018-03-22 10:14 | PDOC1 ---
History and Physical Date of Admission Date of Admission DATE: 03/22/18 TIME: 10:08 Identification/Chief Complaint Chief Complaint Diarrhea and emesis for a few days Source Source: Caregiver, Chart review, Patient History of Present Illness History of Present Illness 62-year-old female who lives at home, claims she has history of IBS diagnosed in the when she had an EGD and colonoscopy done at that time and was put on Carafate afterwards. She is not taking that anymore. She was admitted because of few day history of diarrhea emesis, 5 episodes maybe a day with mild electric abnormalities namely mild hypokalemia. Creatinine was 0.9 but she claims in the past she did carry CK D when her creatinine was higher. NO blood in emesis or stool, SHe is non toxic appearing Her last emesis was at home although she has a bucket at bedside with some saliva? Output The rest of the vital signs and imaging is otherwise unremarkable. She is a nondiabetic NO KUB done, CXR unimpressive. I last admitted her feb 08-2017 for the ff: HYPOTENSION Near syncope secondary to hypotension AK I VMN secondary to decreased perfusion/hypotension Past Medical History Cardiovascular: CAD, HTN, Hyperlipidemia Pulmonary: Bronchitis, COPD GI: Irritable bowel disease Renal/: Chronic renal insuff Endocrine: Diabetes Past Surgical History Past Surgical History: Cataract Removal, Total knee replacement Family History Family History: Hypertension Social History Smoke: No ALCOHOL: none Drugs: None Current Problem List Problem List Problems Medical Problems: (1) UTI (urinary tract infection) Status: Acute Current Medications Current Medications Current Medications Sodium Chloride 1,000 ml @ 1,000 mls/hr 1X ONCE IV Last administered on at 18:49; Start 03/21/18 at 18:15; Stop 03/21/18 at 19:14; Status DC Ondansetron HCl (Zofran) 4 mg 1X ONCE IV Last administered on 03/21/18at 18:47; Start 03/21/18 at 18:15; Stop 03/21/18 at 18:16; Status DC Ceftriaxone Sodium (Rocephin) 1 gm 1X ONCE IVP Last administered on 03/21/18at 19:41; Start 03/21/18 at 19:15; Stop 03/21/18 at 19:16; Status DC Ceftriaxone Sodium (Rocephin) 1 gm Q24H IVP ; Start 03/22/18 at 20:00 Ondansetron HCl (Zofran) 4 mg PRN Q6HRS PRN IV NAUSEA/VOMITING; Start 03/21/18 at 19:15 Ondansetron HCl (Zofran Odt) 4 mg PRN Q6HRS PRN PO NAUSEA/VOMITING; Start at 19:15 Acetaminophen/ Codeine Phosphate (Tylenol #3) 1 tab PRN Q6HRS PRN PO SEVERE PAIN Last administered on 03/21/18at 22:59; Start 03/21/18 at 19:15 Acetaminophen (Tylenol) 500 mg PRN Q6HRS PRN PO MILD PAIN / TEMP; Start at 19:15 Zolpidem Tartrate (Ambien) 5 mg PRN QHS PRN PO INSOMNIA Last administered on 03/21/18at 22:58; Start 03/21/18 at 19:15 Labetalol HCl (Normodyne Iv Push) 20 mg PRN Q2HR PRN IVP HYPERTENSION, SEE COMMENTS; Start 03/21/18 at 19:15 Atorvastatin Calcium (Lipitor) 10 mg HS PO Last administered on 03/21/18at 22:58 ; Start 03/21/18 at 21:00 Clonidine HCl (Catapres Tts-3) 1 patch WEEKLY TD Last administered on 03/22/18at 08:18; Start 03/22/18 at 09:00 Fluticasone Propionate (Flonase) 2 spray BID NS Last administered on 03/22/18at 08:18; Start 03/21/18 at 21:00 Tramadol HCl (Ultram) 50 mg PRN Q6HRS PRN PO MODERATE PAIN; Start 03/21/18 at 19 :15 Acetaminophen (Tylenol) 1,000 mg TID PO Last administered on 03/22/18at 08:17; Start 03/21/18 at 21:00 Albuterol Sulfate (Ventolin Neb Soln) 2.5 mg PRN Q6HRS PRN NEB SHORTNESS OF BREATH; Start 03/21/18 at 20:30 Non-Formulary Medication (Albuterol Sulfate (Proair Respiclick)) 1 puff PRN Q6HRS PRN IH SHORTNESS OF BREATH; Start 03/21/18 at 19:15; Status UNV Non-Formulary Medication (Albuterol Sulfate (Proair Respiclick)) 1 puff PRN Q6HRS PRN IH SHORTNESS OF BREATH; Start 03/21/18 at 19:15; Status UNV Benzonatate (Tessalon Perle) 100 mg [id number] PO Last administered on 03/22/18 08: 17; Start 03/21/18 at 21:00 Calcium/Vitamin D (Oscal D 500mg/ 200uts) 1 tab DAILY PO Last administered on 08:17; Start 03/22/18 at 09:00 Vitamin D (Vitamin D3) 2,000 unit DAILY PO Last administered on 03/22/18 08:16 ; Start 03/22/18 at 09:00 Non-Formulary Medication (Cranberry Extract (Cranberry)) 4,200 mg BID PO ; Start 03/21/18 at 21:00; Status UNV Albuterol Sulfate (Ventolin Neb Soln) 2.5 mg RTQID NEB Last administered on 03/22at 08:31; Start 03/22/18 at 08:00 Cetirizine HCl (ZyrTEC) 10 mg DAILY PO Last administered on 03/22/18at 08:15; Start 03/22/18 at 09:00 Montelukast Sodium (Singulair) 10 mg QHS PO Last administered on 03/21/18at 22:56 ; Start 03/21/18 at 21:00 Non-Formulary Medication (Nystatin ) 1 jai QID TP ; Start 03/21/18 at 21:00; Status UNV Promethazine HCl (Phenergan) 25 mg PRN Q6HRS PRN PO NAUSEA/VOMITING; Start 03/21 at 19:30 Sucralfate (Carafate) 1 gm QIDACHS PO Last administered on 03/22/18at 05:28; Start 03/21/18 at 21:00 Tramadol HCl (Ultram) 100 mg QID PO Last administered on 03/22/18 08:16; Start 03/21/18 at 21:00 Morphine Sulfate (Morphine Sulfate) 2 mg PRN Q2HR PRN IV PAIN; Start 03/21/18 at 19:30 Sodium Chloride 1,000 ml @ 125 mls/hr Q8H IV Last administered on 03/22/18at 05: 24; Start 03/21/18 at 19:10; Stop 03/22/18 at 19:09 Sodium Chloride 1,000 ml @ 1,000 mls/hr 1X ONCE IV Last administered on at 19:40; Start 03/21/18 at 19:45; Stop 03/21/18 at 20:44; Status DC Budesonide (Pulmicort) 0.5 mg RTBID NEB Last administered on 03/22/18at 08:31; Start 03/22/18 at 08:00 Lactobacillus Rhamnosus (Culturelle) 1 cap BID PO Last administered on at 08:15; Start 03/22/18 at 09:00 Active Scripts Active Augmentin 875-125 Tablet (Amoxicillin/Potassium Clav) 1 Each Tablet 1 Tab PO BID Proair Respiclick (Albuterol Sulfate) 90 Mcg Aer.pow.ba 1 Puff IH PRN Q6HRS PRN Tessalon Perle (Benzonatate) 100 Mg Capsule 1 Cap PO TID Reported Tramadol Hcl 100 Mg Tab.er.24h 100 Mg PO Q6HRS Tramadol Hcl 50 Mg Tablet 50 Mg PO Q6HRS PRN Calcium + D3 Er Tablet (Calcium Carb & Cit/Vitamin D3) 1 Each Tablet.er 1 Each PO DAILY Vitamin D3 (Cholecalciferol (Vitamin D3)) 2,000 Unit Tablet 2,000 Unit PO DAILY Cranberry (Cranberry Extract) 500 Mg Tablet 4,200 Mg PO BID Albuterol Sulfate Conc Neb Soln (Albuterol Sulfate) 2.5 Mg/0.5 Ml Vial.neb 1 Vial NEB Q6HRS PRN Singulair Tablet (Montelukast Sodium) 10 Mg Tablet 1 Tab PO DAILY Promethazine Hcl 25 Mg Tablet 1 Tab PO PRN Q6HRS Claritin (Loratadine) 10 Mg Tablet 1 Tab PO DAILY Nystatin 15 Gm Cream..g. 1 Aji TP QID Tylenol Extra Strength (Acetaminophen) 500 Mg Tablet 1,000 Mg PO TID Sucralfate 1 Gm Tablet 1 Tab PO QID Fluticasone Propionate Nasal [place] (Fluticasone Propionate) 16 Gm [place].susp 2 [place] NS BID Catapres-Tts 3 (Clonidine) 1 Each Patch.tdwk 1 Each TD WEEKLY Atorvastatin Calcium 10 Mg Tablet 10 Mg PO HS Proair Respiclick (Albuterol Sulfate) 90 Mcg Aer.pow.ba 1 Puff IH PRN Q6HRS PRN Advair 250-50 Diskus (Fluticasone/Salmeterol) 1 Each Disk.w.dev 1 Puff IH BID Allergies Allergies: Coded Allergies: Sulfa (Sulfonamide Antibiotics) (Verified Allergy, Intermediate, SYNCOPAL EPISODE, 02/10/14) syncopal episode bacitracin (Verified Allergy, Intermediate, Rash, 04/16/13) also neosporin ointment meloxicam (Verified Allergy, Intermediate, Swelling in Feet, 08/05/15) tizanidine (Verified Allergy, Intermediate, Swelling, 04/16/13) and increased liver enzymes venom-honey bee (Verified Allergy, Intermediate, 08/05/15) venom-wasp (Verified Allergy, Intermediate, 08/05/15) ROS Review of System As per history of present illness, the rest of ROS 14 point negative Physical Exam General: Alert, Oriented X3, Cooperative, No acute distress HEENT: Atraumatic, PERRLA, EOMI Lungs: Clear to auscultation, Normal air movement Heart: S1S2, RRR, no thrills, no rubs, no gallops, no murmurs Cardiovascular: S1, S2 Breasts: Normal, Rt breast nml w/o mass, Lt breast nml w/o mass, Nipples normal Abdomen: Normal bowel sounds, Soft, No tenderness, No hepatosplenomegaly, No masses Rectal Exam: not examined PELVIC: Nml ext genitalia Extremities: No clubbing, No cyanosis, No edema, Normal pulses, No tenderness/ swelling Skin: No rashes, No breakdown, No significant lesion Neuro: Normal gait, Normal speech, Strength at 5/5 X4 ext, Normal tone, Sensation intact, Cranial nerves 3-12 NL, Reflexes 2+ Psych/Mental Status: Mental status NL, Mood NL Vitals Vitals Vital Signs Date Time Temp Pulse Resp B/P (MAP) Pulse Ox O2 Delivery O2 Flow Rate FiO2 03/22/18 10:08 Nasal Cannula 2.0 03/22/18 08:15 98 03/22/18 07:20 98.3 95 18 120/52 (74) 98.3 Labs Labs Laboratory Tests Test 03/21/18 14:52 03/21/18 17:25 03/21/18 17:50 03/21/18 18:00 Lactic Acid Level 2.3 mmol/L (0.4-2.0) Urine Collection Type Unknown Urine Color [place] Urine Clarity Turbid Urine pH 5.5 Urine Specific [place] 1.025 Urine Protein 30 mg/dL (NEG-TRACE) Urine Glucose (UA) Negative mg/dL (NEG) Urine Ketones (Stick) 15 mg/dL (NEG) Urine Blood Negative (NEG) Urine Nitrite Negative (NEG) Urine Bilirubin Moderate (NEG) Urine Urobilinogen Dipstick 1.0 mg/dL (0.2 mg/dL) Urine Leukocyte Esterase Moderate (NEG) Urine RBC 0 /HPF (0-2) Urine WBC 11-20 /HPF (0-4) Urine Squamous Epithelial Cells Many /LPF Urine Bacteria Few /HPF (0-FEW) White Blood Count 7.8 x10^3/uL (4.0-11.0) Red Blood Count 3.68 x10^6/uL (3.50-5.40) Hemoglobin 12.7 g/dL (12.0-15.5) Hematocrit 37.7 % (36.0-47.0) Mean Corpuscular Volume 103 fL (79-100) Mean Corpuscular Hemoglobin 35 pg (25-35) Mean Corpuscular Hemoglobin Concent 34 g/dL (31-37) Red Cell Distribution Width 15.6 % (11.5-14.5) Platelet Count 199 x10^3/uL (140-400) Neutrophils (%) (Auto) 47 % (31-73) Lymphocytes (%) (Auto) 32 % (24-48) Monocytes (%) (Auto) 13 % (0-9) Eosinophils (%) (Auto) 5 % (0-3) Basophils (%) (Auto) 3 % (0-3) Neutrophils # (Auto) 3.6 x10^3uL (1.8-7.7) Lymphocytes # (Auto) 2.5 x10^3/uL (1.0-4.8) Monocytes # (Auto) 1.0 x10^3/uL (0.0-1.1) Eosinophils # (Auto) 0.4 x10^3/uL (0.0-0.7) Basophils # (Auto) 0.2 x10^3/uL (0.0-0.2) Sodium Level 145 mmol/L (136-145) Potassium Level 3.5 mmol/L (3.5-5.1) Chloride Level 109 mmol/L (98-107) Carbon Dioxide Level 27 mmol/L (21-32) Anion Gap 9 (6-14) Blood Urea Nitrogen 7 mg/dL (7-20) Creatinine 0.9 mg/dL (0.6-1.0) Estimated GFR (Cockcroft-Gault) 63.2 BUN/Creatinine Ratio 8 (6-20) Glucose Level 82 mg/dL (70-99) Calcium Level 9.4 mg/dL (8.5-10.1) Magnesium Level 1.4 mg/dL (1.8-2.4) Total Bilirubin 2.3 mg/dL (0.2-1.0) Aspartate Amino Transf (AST/SGOT) 82 U/L (15-37) Alanine Aminotransferase (ALT/SGPT) 33 U/L (14-59) Alkaline Phosphatase 160 U/L (46-116) Troponin I Quantitative 0.050 ng/mL (0.000-0.055) Total Protein 7.1 g/dL (6.4-8.2) Albumin 2.7 g/dL (3.4-5.0) Albumin/Globulin Ratio 0.6 (1.0-1.7) Influenza Type A Antigen Negative (NEGATIVE) Influenza Type B Antigen Negative (NEGATIVE) Test 03/22/18 06:30 Lactic Acid Level 2.1 mmol/L (0.4-2.0) Laboratory Tests Test 03/21/18 14:52 03/21/18 17:25 03/21/18 17:50 03/21/18 18:00 Lactic Acid Level 2.3 mmol/L (0.4-2.0) Urine Collection Type Unknown Urine Color [place] Urine Clarity Turbid Urine pH 5.5 Urine Specific [place] 1.025 Urine Protein 30 mg/dL (NEG-TRACE) Urine Glucose (UA) Negative mg/dL (NEG) Urine Ketones (Stick) 15 mg/dL (NEG) Urine Blood Negative (NEG) Urine Nitrite Negative (NEG) Urine Bilirubin Moderate (NEG) Urine Urobilinogen Dipstick 1.0 mg/dL (0.2 mg/dL) Urine Leukocyte Esterase Moderate (NEG) Urine RBC 0 /HPF (0-2) Urine WBC 11-20 /HPF (0-4) Urine Squamous Epithelial Cells Many /LPF Urine Bacteria Few /HPF (0-FEW) White Blood Count 7.8 x10^3/uL (4.0-11.0) Red Blood Count 3.68 x10^6/uL (3.50-5.40) Hemoglobin 12.7 g/dL (12.0-15.5) Hematocrit 37.7 % (36.0-47.0) Mean Corpuscular Volume 103 fL (79-100) Mean Corpuscular Hemoglobin 35 pg (25-35) Mean Corpuscular Hemoglobin Concent 34 g/dL (31-37) Red Cell Distribution Width 15.6 % (11.5-14.5) Platelet Count 199 x10^3/uL (140-400) Neutrophils (%) (Auto) 47 % (31-73) Lymphocytes (%) (Auto) 32 % (24-48) Monocytes (%) (Auto) 13 % (0-9) Eosinophils (%) (Auto) 5 % (0-3) Basophils (%) (Auto) 3 % (0-3) Neutrophils # (Auto) 3.6 x10^3uL (1.8-7.7) Lymphocytes # (Auto) 2.5 x10^3/uL (1.0-4.8) Monocytes # (Auto) 1.0 x10^3/uL (0.0-1.1) Eosinophils # (Auto) 0.4 x10^3/uL (0.0-0.7) Basophils # (Auto) 0.2 x10^3/uL (0.0-0.2) Sodium Level 145 mmol/L (136-145) Potassium Level 3.5 mmol/L (3.5-5.1) Chloride Level 109 mmol/L (98-107) Carbon Dioxide Level 27 mmol/L (21-32) Anion Gap 9 (6-14) Blood Urea Nitrogen 7 mg/dL (7-20) Creatinine 0.9 mg/dL (0.6-1.0) Estimated GFR (Cockcroft-Gault) 63.2 BUN/Creatinine Ratio 8 (6-20) Glucose Level 82 mg/dL (70-99) Calcium Level 9.4 mg/dL (8.5-10.1) Magnesium Level 1.4 mg/dL (1.8-2.4) Total Bilirubin 2.3 mg/dL (0.2-1.0) Aspartate Amino Transf (AST/SGOT) 82 U/L (15-37) Alanine Aminotransferase (ALT/SGPT) 33 U/L (14-59) Alkaline Phosphatase 160 U/L (46-116) Troponin I Quantitative 0.050 ng/mL (0.000-0.055) Total Protein 7.1 g/dL (6.4-8.2) Albumin 2.7 g/dL (3.4-5.0) Albumin/Globulin Ratio 0.6 (1.0-1.7) Influenza Type A Antigen Negative (NEGATIVE) Influenza Type B Antigen Negative (NEGATIVE) Test 03/22/18 06:30 Lactic Acid Level 2.1 mmol/L (0.4-2.0) VTE Prophylaxis Ordered VTE Prophylaxis Devices: Yes VTE Pharmacological Prophylaxi: Yes Assessment/Plan Assessment/Plan Recurrent emesis, diarrhea with a known diagnosis of IBS diagnosed 1990s Obesity, BMI 38 Hypertension with history of hypotension-so far BP is rather controlled Mild hypokalemia replaced No evidence of AK I Plan: I have reconciled home meds I did consult GI just because of this is a readmission for same symptoms-she does carry a history of IBS She did claim before she would try Imodium-this time she did not So far looks like symptoms have abated I have upgraded to regular diet for now Might be able to go home later or tmr latest CHARLEY CALABRESE MD Mar 22, 2018 10:14
[2018-03-22 11:20] VITALS: BP 153/59
[2018-03-22] MEDS ORDERED: NYSTATIN TOPICAL POWDER 15GM BOTTLE. TP PRN (13:00)
--- NOTE | 2018-03-22 13:23 | PDOC2 ---
GI CONSULT Reason For Consult: Nausea and vomiting HPI: HPI: Willy Butler is a 62 years old female patient with hypertension, hyperlipidemia, coronary artery disease, irritable bowel syndrome, chronic kidney disease and total bilateral knee replacement (left 07/2008, right 01/2011 ). She is currently admitted to the hospital after she presented with worsening nausea and vomiting. She reports she has nausea and vomiting since 12/2017. However, her symptoms have worsened in the last three weeks. She indicates she has persistent nausea with emesis of ingested material with frequency 2-5 times daily. She has decreased oral intake lately and has been mainly drinking "7 Up" . She reports she has associated some weight loss with decreased oral intake. She has constipation at base line with "pebble stools' but started to have loose bowel movement with frequency of 1-2 times daily few days ago. She reports she has not moved her bowel since yesterday. No melena or hematochezia. She had normal screening colonoscopy in 03/2013 and was told to have repeat screening colonoscopy in 2023. PMH: PMH: Hypertension, hyperlipidemia, chronic kidney disease, IBS and total bilateral knee replacement. Social History: Smoke: No ALCOHOL: none Drugs: None ROS: GEN: Denies fevers, chills, sweats HEENT: Denies blurred vision, sore throat CV: Denies chest pain RESP: Denies shortness of air, cough GI: Per HPI : Denies hematuria, dysuria ENDO: Denies weight changes NEURO: Denies confusion, dizziness MSK: Has bilateral leg swelling. SKIN: Denies jaundice, pruritus Vitals: Vitals: Vital Signs Date Time Temp Pulse Resp B/P (MAP) Pulse Ox O2 Delivery O2 Flow Rate FiO2 03/22/18 12:13 98 Nasal Cannula 2.0 03/22/18 11:20 98.1 109 18 153/59 (90) 98.1 Labs: Labs: Laboratory Tests Test 03/21/18 14:52 03/21/18 17:25 03/21/18 17:50 03/21/18 18:00 Lactic Acid Level 2.3 mmol/L (0.4-2.0) Urine Collection Type Unknown Urine Color [place] Urine Clarity Turbid Urine pH 5.5 Urine Specific [place] 1.025 Urine Protein 30 mg/dL (NEG-TRACE) Urine Glucose (UA) Negative mg/dL (NEG) Urine Ketones (Stick) 15 mg/dL (NEG) Urine Blood Negative (NEG) Urine Nitrite Negative (NEG) Urine Bilirubin Moderate (NEG) Urine Urobilinogen Dipstick 1.0 mg/dL (0.2 mg/dL) Urine Leukocyte Esterase Moderate (NEG) Urine RBC 0 /HPF (0-2) Urine WBC 11-20 /HPF (0-4) Urine Squamous Epithelial Cells Many /LPF Urine Bacteria Few /HPF (0-FEW) White Blood Count 7.8 x10^3/uL (4.0-11.0) Red Blood Count 3.68 x10^6/uL (3.50-5.40) Hemoglobin 12.7 g/dL (12.0-15.5) Hematocrit 37.7 % (36.0-47.0) Mean Corpuscular Volume 103 fL (79-100) Mean Corpuscular Hemoglobin 35 pg (25-35) Mean Corpuscular Hemoglobin Concent 34 g/dL (31-37) Red Cell Distribution Width 15.6 % (11.5-14.5) Platelet Count 199 x10^3/uL (140-400) Neutrophils (%) (Auto) 47 % (31-73) Lymphocytes (%) (Auto) 32 % (24-48) Monocytes (%) (Auto) 13 % (0-9) Eosinophils (%) (Auto) 5 % (0-3) Basophils (%) (Auto) 3 % (0-3) Neutrophils # (Auto) 3.6 x10^3uL (1.8-7.7) Lymphocytes # (Auto) 2.5 x10^3/uL (1.0-4.8) Monocytes # (Auto) 1.0 x10^3/uL (0.0-1.1) Eosinophils # (Auto) 0.4 x10^3/uL (0.0-0.7) Basophils # (Auto) 0.2 x10^3/uL (0.0-0.2) Sodium Level 145 mmol/L (136-145) Potassium Level 3.5 mmol/L (3.5-5.1) Chloride Level 109 mmol/L (98-107) Carbon Dioxide Level 27 mmol/L (21-32) Anion Gap 9 (6-14) Blood Urea Nitrogen 7 mg/dL (7-20) Creatinine 0.9 mg/dL (0.6-1.0) Estimated GFR (Cockcroft-Gault) 63.2 BUN/Creatinine Ratio 8 (6-20) Glucose Level 82 mg/dL (70-99) Calcium Level 9.4 mg/dL (8.5-10.1) Magnesium Level 1.4 mg/dL (1.8-2.4) Total Bilirubin 2.3 mg/dL (0.2-1.0) Aspartate Amino Transf (AST/SGOT) 82 U/L (15-37) Alanine Aminotransferase (ALT/SGPT) 33 U/L (14-59) Alkaline Phosphatase 160 U/L (46-116) Troponin I Quantitative 0.050 ng/mL (0.000-0.055) Total Protein 7.1 g/dL (6.4-8.2) Albumin 2.7 g/dL (3.4-5.0) Albumin/Globulin Ratio 0.6 (1.0-1.7) Influenza Type A Antigen Negative (NEGATIVE) Influenza Type B Antigen Negative (NEGATIVE) Test 03/22/18 06:30 Lactic Acid Level 2.1 mmol/L (0.4-2.0) Allergies: Coded Allergies: Sulfa (Sulfonamide Antibiotics) (Verified Allergy, Intermediate, SYNCOPAL EPISODE, 02/10/14) syncopal episode bacitracin (Verified Allergy, Intermediate, Rash, 04/16/13) also neosporin ointment meloxicam (Verified Allergy, Intermediate, Swelling in Feet, 08/05/15) tizanidine (Verified Allergy, Intermediate, Swelling, 04/16/13) and increased liver enzymes venom-honey bee (Verified Allergy, Intermediate, 08/05/15) venom-wasp (Verified Allergy, Intermediate, 08/05/15) Medications: Current Medications Medications (Trade) Dose Ordered Sig/Khushboo Route PRN Reason Start Time Stop Time Status Last Admin Dose Admin Sodium Chloride 1,000 ml @ 1,000 mls/hr 1X ONCE IV 03/21/18 18:15 03/21/18 19:14 DC 03/21/18 18:49 Ondansetron HCl (Zofran) 4 mg 1X ONCE IV 03/21/18 18:15 03/21/18 18:16 DC 03/21/18 18:47 Ceftriaxone Sodium (Rocephin) 1 gm 1X ONCE IVP 03/21/18 19:15 03/21/18 19:16 DC 03/21/18 19:41 Acetaminophen/ Codeine Phosphate (Tylenol #3) 1 tab PRN Q6HRS PRN PO SEVERE PAIN 03/21/18 19:15 03/21/18 22:59 Zolpidem Tartrate (Ambien) 5 mg PRN QHS PRN PO INSOMNIA 03/21/18 19:15 03/21/18 22:58 Atorvastatin Calcium (Lipitor) 10 mg HS PO 03/21/18 21:00 03/21/18 22:58 Clonidine HCl (Catapres Tts-3) 1 patch WEEKLY TD 03/22/18 09:00 03/22/18 08:18 Fluticasone Propionate (Flonase) 2 spray BID NS 03/21/18 21:00 03/22/18 08:18 Acetaminophen (Tylenol) 1,000 mg TID PO 03/21/18 21:00 03/22/18 08:17 Benzonatate (Tessalon Perle) 100 mg [id number] PO 03/21/18 21:00 03/22/18 08:17 Calcium/Vitamin D (Oscal D 500mg/ 200uts) 1 tab DAILY PO 03/22/18 09:00 03/22/18 08:17 Vitamin D (Vitamin D3) 2,000 unit DAILY PO 03/22/18 09:00 03/22/18 08:16 Albuterol Sulfate (Ventolin Neb Soln) 2.5 mg RTQID NEB 03/22/18 08:00 03/22/18 12:13 Cetirizine HCl (ZyrTEC) 10 mg DAILY PO 03/22/18 09:00 03/22/18 08:15 Montelukast Sodium (Singulair) 10 mg QHS PO 03/21/18 21:00 03/21/18 22:56 Sucralfate (Carafate) 1 gm QIDACHS PO 03/21/18 21:00 03/22/18 11:50 Tramadol HCl (Ultram) 100 mg QID PO 03/21/18 21:00 03/22/18 08:16 Sodium Chloride 1,000 ml @ 125 mls/hr Q8H IV 03/21/18 19:10 2/2/19 19:09 03/22/18 11:52 Sodium Chloride 1,000 ml @ 1,000 mls/hr 1X ONCE IV 03/21/18 19:45 03/21/18 20:44 DC 03/21/18 19:40 Budesonide (Pulmicort) 0.5 mg RTBID NEB 03/22/18 08:00 03/22/18 08:31 Lactobacillus Rhamnosus (Culturelle) 1 cap BID PO 03/22/18 09:00 03/22/18 08:15 PE: GEN: NAD HEENT: Atraumatic, PERRLA LUNGS: CTAB HEART: RRR, no murmurs ABD: NABS, S/ND/NT, no masses EXTREMITY: Bilateral leg swelling with pitting edema ( worse in left lower legs) . Has also mild reddish discoloration of the skin and mild tenderness in calf muscle. SKIN: No rashes, no jaundice NEURO/PSYCH: A & O �3 A/P: A/P: Willy Butler is a 62 years old female patient with hypertension, hyperlipidemia, coronary artery disease, irritable bowel syndrome,chronic kidney disease and total bilateral knee replacement (left 07/2008, right 01/2011 ). She is currently admitted to the hospital after she presented with worsening nausea and vomiting with decreased oral intake. She has constipation at base line with "pebble stools' but started to have loose bowel movement with frequency of 1-2 times daily few days ago. She reports she has not moved her bowel since yesterday. No melena or hematochezia. She had normal screening colonoscopy in 03/2013 and was told to have repeat screening colonoscopy in 2023. Recommendation: - Advance diet as tolerated. - Antiemetics: Zofran / Phenergan as needed. - Protonix 20mg PO BID. - Avoid NSAIDs. - Bowel regimen: Miralax 17grams 1-2 daily. - Doppler ultrasound of the extremities to rule out DVT. - No urgent indication for endoscopic exam. - Follow up with GI as out patient for EGD to rule out luminal process. - GI available for any Q's. Thank you for involving us in the care of this patient. JULIETA DONAHUE MD Mar 22, 2018 13:23
[2018-03-22 15:30] VITALS: BP 112/47
[2018-03-22 19:30] VITALS: BP 104/53
[2018-03-22] MEDS ORDERED: MAGNESIUM SULFATE 2GM 50 ML IV ONE (19:45)
[2018-03-22] MEDS ORDERED: cefTRIAXone IV Push 1 GM VIAL. IVP SCH (20:00)
--- NOTE | 2018-03-22 20:28 | RAD ---
Bilateral lower extremity venous Doppler dated 03/22/2018. No comparison available. Clinical data indication: Edema. FINDINGS: Grayscale, color-flow and spectral waveform analysis performed to include the deep venous system of both lower extremity. Normal compressibility, phasicity and augmentation of flow throughout. No filling defects are seen. IMPRESSION: No evidence of lower extremity deep vein thrombosis. Electronically signed by: Chad Barker MD (03/22/2018 8:24 PM) [facility] [email or web address]
[2018-03-22] MEDS: ATORVASTATIN CALCIUM 10 MG TABLET. PO SCH (21:23)
[2018-03-22] MEDS: MONTELUKAST SODIUM 10 MG TABLET. PO SCH (21:23)
[2018-03-22 23:25] VITALS: BP 145/57
[2018-03-23 03:05] VITALS: BP 131/65
[2018-03-23 07:35] VITALS: BP 154/61
[2018-03-23] MEDS: ALBUTEROL SULFATE 2.5 MG/3 ML NEBU. NEB SCH ×2 (07:46→11:27)
[2018-03-23] MEDS: BUDESONIDE 0.5 MG/2 ML NEBU. NEB SCH (07:46)
[2018-03-23] MEDS ORDERED: ONDA4TAB7 PO (08:12)
[2018-03-23] MEDS ORDERED: PANT20TA2 PO (08:12)
[2018-03-23] MEDS: FLUTICASONE 50MCG/NASAL SPRAY 16GM BOTTLE. NS SCH (09:26)
[2018-03-23] MEDS: SUCRALFATE 1 GM TABLET. PO SCH ×2 (09:27→11:30)
[2018-03-23] MEDS: traMADol 50 MG TABLET PO SCH (09:27)
[2018-03-23] MEDS: LACTOBACILLUS RHAMNOSUS GG 1 CAPSULE. PO SCH (09:27)
[2018-03-23] MEDS: ACETAMINOPHEN 500 MG TABLET PO SCH (09:27)
[2018-03-23] MEDS: CHOLECALCIFEROL (VITAMIN D3) 1,000 UNIT TABLET PO SCH (09:28)
[2018-03-23] MEDS: BENZONATATE 100 MG CAPSULE. PO SCH (09:28)
[2018-03-23] MEDS: CALCIUM CARB/VIT D3 500/200 TABLET. PO SCH (09:28)
[2018-03-23] MEDS: CETIRIZINE HCL 10 MG TABLET. PO SCH (09:28)
--- NOTE | 2018-03-23 09:49 | PDOC3 ---
Discharge Summary Visit Information Date of Admission: Mar 21, 2018 Date of Discharge: Mar 23, 2018 Admitting Diagnosis Comment: Recurrent emesis, diarrhea with a known diagnosis of IBS diagnosed 1990s Obesity, BMI 38 Hypertension with history of hypotension-so far BP is rather controlled Mild hypokalemia replaced No evidence of AK I Final Diagnosis Problems Medical Problems: (1) UTI (urinary tract infection) Status: Acute Brief Hospital Course Allergies Allergies Coded Allergies Type Severity Reaction Last Updated Verified Sulfa (Sulfonamide Antibiotics) Allergy Intermediate SYNCOPAL EPISODE Yes bacitracin Allergy Intermediate Rash 04/16/13 Yes meloxicam Allergy Intermediate Swelling in Feet 08/05/15 Yes tizanidine Allergy Intermediate Swelling 04/16/13 Yes venom-honey bee Allergy Intermediate 08/05/15 Yes venom-wasp Allergy Intermediate 08/05/15 Yes Vital Signs Vital Signs Date Time Temp Pulse Resp B/P (MAP) Pulse Ox O2 Delivery O2 Flow Rate FiO2 03/23/18 09:27 17 Room Air 03/23/18 07:48 98 2.0 03/23/18 07:35 98.3 102 154/61 (92) 98.3 Lab Results Laboratory Tests Test 03/21/18 14:52 03/21/18 17:25 03/21/18 17:50 03/21/18 18:00 Lactic Acid Level 2.3 mmol/L (0.4-2.0) Urine Collection Type Unknown Urine Color [place] Urine Clarity Turbid Urine pH 5.5 Urine Specific [place] 1.025 Urine Protein 30 mg/dL (NEG-TRACE) Urine Glucose (UA) Negative mg/dL (NEG) Urine Ketones (Stick) 15 mg/dL (NEG) Urine Blood Negative (NEG) Urine Nitrite Negative (NEG) Urine Bilirubin Moderate (NEG) Urine Urobilinogen Dipstick 1.0 mg/dL (0.2 mg/dL) Urine Leukocyte Esterase Moderate (NEG) Urine RBC 0 /HPF (0-2) Urine WBC 11-20 /HPF (0-4) Urine Squamous Epithelial Cells Many /LPF Urine Bacteria Few /HPF (0-FEW) White Blood Count 7.8 x10^3/uL (4.0-11.0) Red Blood Count 3.68 x10^6/uL (3.50-5.40) Hemoglobin 12.7 g/dL (12.0-15.5) Hematocrit 37.7 % (36.0-47.0) Mean Corpuscular Volume 103 fL (79-100) Mean Corpuscular Hemoglobin 35 pg (25-35) Mean Corpuscular Hemoglobin Concent 34 g/dL (31-37) Red Cell Distribution Width 15.6 % (11.5-14.5) Platelet Count 199 x10^3/uL (140-400) Neutrophils (%) (Auto) 47 % (31-73) Lymphocytes (%) (Auto) 32 % (24-48) Monocytes (%) (Auto) 13 % (0-9) Eosinophils (%) (Auto) 5 % (0-3) Basophils (%) (Auto) 3 % (0-3) Neutrophils # (Auto) 3.6 x10^3uL (1.8-7.7) Lymphocytes # (Auto) 2.5 x10^3/uL (1.0-4.8) Monocytes # (Auto) 1.0 x10^3/uL (0.0-1.1) Eosinophils # (Auto) 0.4 x10^3/uL (0.0-0.7) Basophils # (Auto) 0.2 x10^3/uL (0.0-0.2) Sodium Level 145 mmol/L (136-145) Potassium Level 3.5 mmol/L (3.5-5.1) Chloride Level 109 mmol/L (98-107) Carbon Dioxide Level 27 mmol/L (21-32) Anion Gap 9 (6-14) Blood Urea Nitrogen 7 mg/dL (7-20) Creatinine 0.9 mg/dL (0.6-1.0) Estimated GFR (Cockcroft-Gault) 63.2 BUN/Creatinine Ratio 8 (6-20) Glucose Level 82 mg/dL (70-99) Calcium Level 9.4 mg/dL (8.5-10.1) Magnesium Level 1.4 mg/dL (1.8-2.4) Total Bilirubin 2.3 mg/dL (0.2-1.0) Aspartate Amino Transf (AST/SGOT) 82 U/L (15-37) Alanine Aminotransferase (ALT/SGPT) 33 U/L (14-59) Alkaline Phosphatase 160 U/L (46-116) Troponin I Quantitative 0.050 ng/mL (0.000-0.055) Total Protein 7.1 g/dL (6.4-8.2) Albumin 2.7 g/dL (3.4-5.0) Albumin/Globulin Ratio 0.6 (1.0-1.7) Influenza Type A Antigen Negative (NEGATIVE) Influenza Type B Antigen Negative (NEGATIVE) Test 03/22/18 06:30 03/23/18 07:15 Lactic Acid Level 2.1 mmol/L (0.4-2.0) Magnesium Level 1.9 mg/dL (1.8-2.4) Laboratory Tests Test 03/23/18 07:15 Magnesium Level 1.9 mg/dL (1.8-2.4) Brief Hospital Course Ms. Butler is a 62 old [place] female BMI 53, known diagnosis IBS , comes in because of emesis & diarrhea which has since resolved and she got admitted. Mild hypokalemia no evidence of AK I. We have replaced and corrected potassium. Consulted GI. Had no further recommendations except for outpatient EGD again and PPI 20 twice a day along with Zofran or Phenergan when necessary. I have prescribed Zofran and PPI. Okay to [place] home today. Tolerating diet fine and no recurrence of emesis or diarrhea ever since admission None Time spent discharging less than 30 minutes Discharge Information Condition at Discharge: Improved, Stable Follow Up: Weeks (GI for OP EGD) Disposition/Orders: D/C to Home Scheduled Acetaminophen (Tylenol Extra Strength) 500 Mg Tablet, 1,000 MG PO TID, (Reported ) Entered as Reported by: GAUTAM BRYAN on 08/05/15755 Last Action: Converted on 03/21/181915 by CHARLEY CALABRESE Amoxicillin/Potassium Clav (Augmentin 875-125 Tablet) 1 Each Tablet, 1 TAB PO BID, #20 Prescribed by: Jacquie Rossi APRN on 12/31/16 1645 Last Action: HELD on 03/21/181915 by CHARLEY CALABRESE Atorvastatin Calcium (Atorvastatin Calcium) 10 Mg Tablet, 10 MG PO HS for FOR CHOLESTEROL, #30 Ref 0 (Reported) Entered as Reported by: GAUTAM BRYAN on 08/05/15755 Last Action: Continued on 03/21/181915 by CHARLEY CALABRESE Benzonatate (Tessalon Perle) 100 Mg Capsule, 1 CAP PO TID, #30 Prescribed by: Jacquie Rossi APRN on 12/31/16 1645 Last Action: Converted on 03/21/181915 by CHARLEY CALABRESE Calcium Carb & Cit/Vitamin D3 (Calcium + D3 Er Tablet) 1 Each Tablet.er, 1 EACH PO DAILY, (Reported) Entered as Reported by: GAUTAM BRYAN on 08/05/15755 Last Action: Converted on 03/21/181915 by CHARLEY CALABRESE Cholecalciferol (Vitamin D3) (Vitamin D3) 2,000 Unit Tablet, 2,000 UNIT PO DAILY , (Reported) Entered as Reported by: GAUTAM BRYAN on 08/05/15755 Last Action: Converted on 03/21/181915 by CHARLEY CALABRESE Clonidine (Catapres-Tts 3) 1 Each Patch.tdwk, 1 EACH TD WEEKLY, (Reported) Entered as Reported by: GAUTAM BRYAN on 08/05/15755 Last Action: Continued on 03/21/181915 by CHARLEY CALABRESE Cranberry Extract (Cranberry) 500 Mg Tablet, 4,200 MG PO BID, (Reported) Entered as Reported by: GAUTAM BRYAN on 08/05/15755 Last Action: Converted on 03/21/181915 by CHARLEY CALABRESE Fluticasone Propionate (Fluticasone Propionate Nasal [place]) 16 Gm [place].susp, 2 SPRAY NS BID, #1 Ref 11 (Reported) Entered as Reported by: GAUTAM BRYAN on 08/05/15755 Last Action: Continued on 03/21/181915 by CHARLEY CALABRESE Fluticasone/Salmeterol (Advair 250-50 Diskus) 1 Each Disk.w.dev, 1 PUFF IH BID, #3 Ref 3 (Reported) Entered as Reported by: GAUTAM BRYAN on 08/05/15755 Last Action: Converted on 03/21/181915 by CHARLEY CALABRESE Loratadine (Claritin) 10 Mg Tablet, 1 TAB PO DAILY, #30 Ref 5 (Reported) Entered as Reported by: GAUTAM BRYAN on 08/05/15755 Last Action: Converted on 03/21/181915 by CHARLEY CALABRESE Montelukast Sodium (Singulair Tablet) 10 Mg Tablet, 1 TAB PO DAILY, #90 Ref 1 ( Reported) Entered as Reported by: GAUTAM BRYAN on 08/05/15755 Last Action: Converted on 03/21/181915 by CHARLEY CALABRESE Nystatin (Nystatin) 15 Gm Cream..g., 1 RABIA TP QID, #30 (Reported) Entered as Reported by: GAUTAM BRYAN on 08/05/15755 Last Action: Converted on 03/21/181915 by CHARLEY CALABRESE Ondansetron Hcl (Zofran) 4 Mg Tablet, 1 TAB PO Q6HRS for emessi, #20 Prescribed by: CHARLEY CALABRESE on 03/23/18 0812 Pantoprazole Sodium (Protonix) 20 Mg Tablet.dr, 1 TAB PO BID for GERD, #30 Prescribed by: CHARLEY CALABRESE on 03/23/18 0812 Promethazine Hcl (Promethazine Hcl) 25 Mg Tablet, 1 TAB PO PRN Q6HRS, #20 ( Reported) Entered as Reported by: GAUTAM BRYAN on 08/05/15755 Last Action: Converted on 03/21/181915 by CHARLEY CALABRESE Sucralfate (Sucralfate) 1 Gm Tablet, 1 TAB PO QID, #120 Ref 3 (Reported) Entered as Reported by: GAUTAM BRYAN on 08/05/15755 Last Action: Converted on 03/21/181915 by CHARLEY CALABRESE Tramadol Hcl (Tramadol Hcl) 100 Mg Tab.er.24h, 100 MG PO Q6HRS for pain, ( Reported) Entered as Reported by: TOMASZ MORA on 02/08/18 1621 Last Action: Converted on 03/21/181915 by CHARLEY CALABRESE Scheduled PRN Albuterol Sulfate (Proair Respiclick) 90 Mcg Aer.pow.ba, 1 PUFF IH PRN Q6HRS PRN for SHORTNESS OF BREATH, (Reported) Entered as Reported by: GAUTAM BRYAN on 08/05/15755 Last Action: Converted on 03/21/181915 by CHARLEY CALABRESE Albuterol Sulfate (Albuterol Sulfate Conc Neb Soln) 2.5 Mg/0.5 Ml Vial.neb, 1 VIAL NEB Q6HRS PRN for WHEEZING, #120 Ref 5 (Reported) Entered as Reported by: GAUTAM BRYAN on 08/05/15 0756 Last Action: Converted on 03/21/181915 by CHARLEY CALABRESE Albuterol Sulfate (Proair Respiclick) 90 Mcg Aer.pow.ba, 1 PUFF IH PRN Q6HRS PRN for SHORTNESS OF BREATH, #1 Prescribed by: Jacquie Rossi APRN on 12/31/16 1645 Last Action: Converted on 03/21/181915 by CHARLEY CALABRESE Tramadol Hcl (Tramadol Hcl) 50 Mg Tablet, 50 MG PO Q6HRS PRN for PAIN, Ref 0 ( Reported) Entered as Reported by: TOMASZ MORA on 02/08/18 1621 Last Action: Continued on 03/21/181915 by CHARLEY AQUINO MD Mar 23, 2018 09:49
[2018-03-23 10:42] VITALS: BP 129/58
--- NOTE | 2018-03-23 12:17 | NUR ---
Discharge Note: NELLIE TREVINO Discharge instructions and discharge home medications reviewed with Patient and a copy given. All questions have been answered and understanding verbalized. The following instructions and handouts were given: Worsening symptoms, follow-up instructions, medications, and activity. Discontinued lines and drains: IV discontinued, telemetry removed, and skin intact. Patient discharged to home with son via private transportation.
[2018-04-04] MEDS ORDERED: HYDR-2765 PO (06:37)
[2018-04-04] MEDS ORDERED: POTA10TA12 PO (06:37)
== END 2018-03-23 12:22 | disposition home or self-care (01) | DRG 391 ==
LOC: ER 17:03 → 2 NORTH 20:09
PROVIDERS: ADMIT Internal Medicine; ATTEND Internal Medicine
DX: K58.0 Irritable bowel syndrome with diarrhea (principal); E43 Unspecified severe protein-calorie malnutrition; N39.0 Urinary tract infection, site not specified; E11.22 Type 2 diabetes mellitus with diabetic chronic kidney disease; E66.9 Obesity, unspecified; E78.00 Pure hypercholesterolemia, unspecified; E78.5 Hyperlipidemia, unspecified; E87.6 Hypokalemia; I12.9 Hypertensive chronic kidney disease with stage 1 through stage 4 chronic kidney disease, or unspecified chronic kidney disease; I25.10 Atherosclerotic heart disease of native coronary artery without angina pectoris; J44.9 Chronic obstructive pulmonary disease, unspecified; N18.9 Chronic kidney disease, unspecified; Z68.38 Body mass index [BMI] 38.0-38.9, adult; Z82.49 Family history of ischemic heart disease and other diseases of the circulatory system; Z96.653 Presence of artificial knee joint, bilateral; G89.29 Other chronic pain; M19.90 Unspecified osteoarthritis, unspecified site; Z86.14 Personal history of Methicillin resistant Staphylococcus aureus infection
CPT/HCPCS: 36415; 71045; 80053; 81001; 83605; 83735; 84484; 85025; 87040; 87641; 87804; 93005; 93970; 94640; 94760; 96361; 96374; 96375; J0696; J2405; J3475; J7030; J7613; J7626; 99285-25; G0378